=== PATIENT | female | born 1975 | race American Indian/Alaskan Native ===

== ENCOUNTER → 2016-08-08 | Outpatient (CLI) | payer BC | LOC: MW.CHFP 11:56 | PROVIDERS: ATTEND Emergency Medicine | DX: E03.9 Hypothyroidism, unspecified (principal) | CPT/HCPCS: 36415; 84443 ==

== ENCOUNTER 2016-08-16 09:57 | Emergency (ER) | payer BC ==
[2016-08-16] MEDS ORDERED: Ketorolac 60 MG/2 ML SDV IM ONE (10:13)
--- NOTE | 2016-08-16 10:22 | EDM.PDOC ---
ED UPPER BACK/NECK PAIN/INJURY - General Chief Complaint: Neck Problem Stated Complaint: PT CAN'T MOVE HER NECK Time Seen by Provider: 08/16/16 10:00 Source of Information: Reports: Patient History Limitations: Reports: No limitations - History of Present Illness INITIAL COMMENTS - FREE TEXT/NARRATIVE: Presents to the ER reporting that 48 hours ago she was standing on a stool in the garage putting away some items in the rafters. The stool was unsteady and it tipped. She fell to the floor striking her left side but her neck lurched in a whiplash fashion. Her neck was sore that evening and it worsened yesterday. Now today she reports cervical spinal tenderness and pain that radiates up to the occiput, down to below her shoulder blades and laterally to the right shoulder. It is worse when turning her head to the left. She has tried NSAIDs , and massaging, hot packs without relief. Denies tingling or numbness, headache, focal weakness. - Related Data Allergies/ADRs: Allergies Allergy/AdvReac Type Severity Reaction Status Date / Time amoxicillin [Amoxicillin] Allergy Airway Verified 08/16/16 09:59 Tightness Home Meds: Home Meds Levothyroxine [Synthroid] 100 mcg PO DAILY 12/07/14 [History] Multivitamin [Daily Multiple Vitamin] 1 tab PO DAILY 05/16/16 [History] Cyclobenzaprine [Flexeril] 10 mg PO TID PRN #20 tablet 08/16/16 [Rx] Cyclobenzaprine [Flexeril] 10 mg PO TID PRN 7 Days 08/16/16 [Rx] Past Medical History - Past Health History Medical/Surgical History: Denies Medical/Surgical History Other HEENT History: wears reading glasses Cardiovascular History: Reports: None Respiratory History: Reports: None Gastrointestinal History: Reports: None Genitourinary History: Reports: None 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 Musculoskeletal History: Reports: Fracture, RA Other Musculoskeletal History: hx of fx fingers, left hand, bilateral dislocated knees Neurological History: Reports: Concussion, Seizure Other Neuro History: 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, last one at 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21, West Nile infection 2010 Psychiatric History: Reports: None Endocrine/Metabolic History: Reports: Hypothyroidism Hematologic History: Reports: None Immunologic History: Reports: None Oncologic (Cancer) History: Reports: None Dermatologic History: Reports: None - Infectious Disease History Infectious Disease History: Reports: Chicken pox Other Infectious Disease History: mom says pt had roseola - Past Surgical History Head Surgeries/Procedures: Reports: None HEENT Surgical History: Reports: Naso-sinus surgery, Tonsillectomy Cardiovascular Surgical History: Reports: None Respiratory Surgical History: Reports: None GI Surgical History: Reports: Hernia, inguinal Female Surgical History: Reports: None Endocrine Surgical History: Reports: None Neurological Surgical History: Reports: None Musculoskeletal Surgical History: Reports: None Oncologic Surgical History: Reports: None Dermatological Surgical History: Reports: None Social & Family History - Family History Family Medical History: Noncontributory - Tobacco Use Smoking Status *Q: Never Smoker Years of Tobacco use: 9 Used Tobacco, but Quit: Yes Month Tobacco Last Used: 05/2009 Second Hand Smoke Exposure: No - Caffeine Use Caffeine Use: Reports: None - Alcohol Use Days Per Week of Alcohol Use: 1 Number of Drinks Per Day: 7 Total Drinks Per Week: 7 - Recreational Drug Use Recreational Drug Use: No Drug Use in Last 12 Months: No ED ROS GENERAL - Review of Systems Review Of Systems: ROS reveals no pertinent complaints other than HPI. ED EXAM, UPPER BACK/NECK PAIN - Physical Exam Exam: See Below Exam Limited By: No limitations General Appearance: alert, no apparent distress, other (head straight forward alignment) Ears Exam: normal external exam Nose Exam: normal inspection Throat/Mouth Exam: Normal inspection Head Exam: atraumatic, normocephalic Neck Exam: normal inspection, limited range of motion (spinal pain when head rotated left), painful range of motion, spinous processes tender, stiff neck Nexus Criteria: posterior, midline cervical tenderness Cardiovascular/Respiratory: regular rate, rhythm Extremities: normal inspection, normal range of motion, other (right shoulder full ROM without hesitation or m) Neurologic: no motor/sensory deficits, alert, oriented x 3 Psychiatric: normal affect, normal mood Skin Exam: Normal color, Warm/dry Lymphatic: no adenopathy Course - Vital Signs Last Recorded V/S: Last Vital Signs Temp 36.4 C 08/16/16 10:00 Pulse 87 08/16/16 10:00 Resp 18 08/16/16 10:00 BP 148/95 H 08/16/16 10:00 Pulse Ox 96 08/16/16 10:00 - Orders/Labs/Meds Orders: Active Orders 24 hr Category Date Time Status Cervical Spine 2V or 3V [CR] Stat Exams 08/16/16 10:12 Ordered Meds: Medications Discontinued Medications Generic Name Dose Route Start Last Admin Trade Name Lencho PRN Reason Stop Dose Admin Ketorolac Tromethamine 60 mg 08/16/16 10:13 Toradol IM 08/16/16 10:14 ONETIME ONE Departure - Departure Time of Disposition: 11:55 Disposition: Home, Self-Care 01 Condition: good Clinical Impression: Neck pain, acute Instructions: Cervical Sprain, [id number] Referrals: Alberto Yates MD [Physician] - Forms: ED Department Discharge Additional Instructions: 1. Cyclobenzaprine 10 mg every 8 hours as needed for muscle spasm 2. Ultram 50 mg 1-2 mg every 6-8 hours 3. Valium 10 mg one half to one tablet at bedtime as needed--no driving or operating machinery. 4. Warm or cold packs whichever feels back to the neck and upper back as needed for pain 5. PT evaluate and treat if symptoms do not improve 6. Follow up in primary care with Dr. Yates - My Orders Last 24 Hours: My Active Orders 08/16/16 10:12 Cervical Spine 2V or 3V [CR] Stat - Assessment/Plan Last 24 Hours: My Active Orders 08/16/16 10:12 Cervical Spine 2V or 3V [CR] Stat
--- NOTE | 2016-08-16 11:23 | CR ---
EXAMINATION: Cervical spine HISTORY: Pain COMPARISON: None TECHNIQUE: AP and lateral views of the cervical spine FINDINGS: There is a trace reversal of the normal cervical lordosis, likely positional. The vertebra l body heights and disc spaces are grossly maintained. Mild to moderate marginal osteophytes are not ed at C5-C7. Bone mineralization is normal. Early facet arthritic changes are noted. The prevertebra l soft tissues are normal. IMPRESSION: Mild degenerative changes without acute findings.
[2016-08-16 12:13] VITALS: BP 147/89
== END 2016-08-16 12:11 | disposition home or self-care (01) ==
LOC: MW.ED 09:57
DX: M54.2 Cervicalgia (principal); E03.9 Hypothyroidism, unspecified; Z98.890 Other specified postprocedural states; Z79.899 Other long term (current) drug therapy; Z88.1 Allergy status to other antibiotic agents; W17.89XA Other fall from one level to another, initial encounter
CPT/HCPCS: 72040; 96372; 99283; J1885

== ENCOUNTER 2017-01-21 02:02 | Emergency (ER) | payer BC ==
[2017-01-21] MEDS ORDERED: Sodium Chloride 0.9% 10 ML Syringe FLUSH PRN (02:11)
[2017-01-21] MEDS ORDERED: Sodium Chloride 0.9% 2.5 ML Syringe FLUSH PRN (02:11)
[2017-01-21] MEDS ORDERED: LORazepam 2 MG/ML MDV IVPUSH PRN (02:11)
--- NOTE | 2017-01-21 02:17 | EDM.PDOC ---
ED HPI GENERAL MEDICAL PROBLEM - General Chief Complaint: Head Injury Stated Complaint: AMBULANCE Time Seen by Provider: 01/21/17 02:08 Source of Information: Reports: Police, RN - History of Present Illness INITIAL COMMENTS - FREE TEXT/NARRATIVE: She presented by EMS. She was at a bar and fell down on her face. No reported or known LOC. - Related Data Allergies Allergy/AdvReac Type Severity Reaction Status Date / Time amoxicillin [Amoxicillin] Allergy Airway Verified 01/21/17 02:11 Tightness Home Meds: Home Meds Levothyroxine [Synthroid] 100 mcg PO DAILY 12/07/14 [History] Multivitamin [Daily Multiple Vitamin] 1 tab PO DAILY 05/16/16 [History] Cyclobenzaprine [Flexeril] 10 mg PO TID PRN #20 tablet 08/16/16 [Rx] Cyclobenzaprine [Flexeril] 10 mg PO TID PRN 7 Days tablet 08/16/16 [Rx] Past Medical History - Past Health History Medical/Surgical History: Denies Medical/Surgical History Other HEENT History: wears reading glasses Cardiovascular History: Reports: None Respiratory History: Reports: None Gastrointestinal History: Reports: None Genitourinary History: Reports: None 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 Musculoskeletal History: Reports: Fracture, RA Other Musculoskeletal History: hx of fx fingers, left hand, bilateral dislocated knees Neurological History: Reports: Concussion, Seizure Other Neuro History: 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, last one at age 21, West Nile infection 2010 Psychiatric History: Reports: None Endocrine/Metabolic History: Reports: Hypothyroidism Hematologic History: Reports: None Immunologic History: Reports: None Oncologic (Cancer) History: Reports: None Dermatologic History: Reports: None - Infectious Disease History Infectious Disease History: Reports: Chicken Pox Other Infectious Disease History: mom says pt had roseola - Past Surgical History HEENT Surgical History: Reports: Naso-Sinus Surgery, Tonsillectomy GI Surgical History: Reports: Hernia, Inguinal Social & Family History - Family History Family Medical History: Noncontributory - Tobacco Use Smoking Status *Q: Never Smoker Years of Tobacco use: 9 Used Tobacco, but Quit: Yes Month Tobacco Last Used: 05/2009 Second Hand Smoke Exposure: No - Caffeine Use Caffeine Use: Reports: None - Alcohol Use Days Per Week of Alcohol Use: 1 Number of Drinks Per Day: 7 Total Drinks Per Week: 7 - Recreational Drug Use Recreational Drug Use: No Drug Use in Last 12 Months: No ED ROS GENERAL - Review of Systems Review Of Systems: Unable To Obtain ED EXAM, HEAD INJURY - Physical Exam Exam: See Below Text/Narrative:: she is crying and repeats " where is my daughter". She does not answer questions head: neg prieto sign; neg raccoon eyes neck supple and non tender appears to have diffuse swellling of the nasal bridge lungs CTA heart RRR abdomen non tender no facial asymmetry no motor asymmetry Course - Vital Signs Last Recorded V/S: Last Vital Signs Temp 97.4 F 01/21/17 02:04 Pulse 120 H 01/21/17 02:04 Resp 20 01/21/17 02:04 BP 149/111 H 01/21/17 02:04 Pulse Ox 97 01/21/17 02:04 - Orders/Labs/Meds Orders: Active Orders 24 hr Category Date Time Status Cervical Spine wo Cont [CT] Stat Exams 01/21/17 02:12 Taken Head wo Cont [CT] Stat Exams 01/21/17 02:12 Taken Max Facial Sinus wo Cont [CT] Stat Exams 01/21/17 02:12 Taken DRUG SCREEN, URINE [URCHEM] Stat Lab 01/21/17 02:11 Uncollected UA W/MICROSCOPIC [URIN] Stat Lab 01/21/17 02:11 Uncollected LORazepam [Ativan] Med 01/21/17 02:11 Active 1 - 2 mg IVPUSH Q4H PRN Sodium Chloride 0.9% [Normal Saline] 250 ml Med 01/21/17 02:30 Active IV ASDIRECTED Sodium Chloride 0.9% [Saline Flush] Med 01/21/17 02:11 Active 10 ml FLUSH ASDIRECTED PRN Sodium Chloride 0.9% [Saline Flush] Med 01/21/17 02:11 Active 2.5 ml FLUSH ASDIRECTED PRN Saline Lock Insert [OM.PC] Stat Oth 01/21/17 02:10 Ordered Medication Orders Sodium Chloride (Normal Saline) 250 mls @ 250 mls/hr IV ASDIRECTED SLADE Last Admin: 01/21/17 02:30 Dose: 250 mls/hr Lorazepam (Ativan) 1 - 2 mg IVPUSH Q4H PRN PRN Reason: Anxiety Last Admin: 01/21/17 02:25 Dose: 1 mg Sodium Chloride (Saline Flush) 10 ml FLUSH ASDIRECTED PRN PRN Reason: Keep Vein Open Sodium Chloride (Saline Flush) 2.5 ml FLUSH ASDIRECTED PRN PRN Reason: Keep Vein Open Labs: Laboratory Tests 01/21/17 01/21/17 01/21/17 Range/Units 02:20 02:20 02:20 WBC 9.54 (4.0-11.0) K/uL RBC 4.95 (4.30-5.90) M/uL Hgb 15.5 (12.0-16.0) g/dL Hct 44.6 (36.0-46.0) % MCV 90.1 (80.0-98.0) fL MCH 31.3 (27.0-32.0) pg MCHC 34.8 (31.0-37.0) g/dL RDW Std Deviation 44.2 (28.0-62.0) fl RDW Coeff of Desirae 14 (11.0-15.0) % Plt Count 461 H (150-400) K/uL MPV 9.10 (7.40-12.00) fL Neut % (Auto) 61.6 (48.0-80.0) % Lymph % (Auto) 33.3 (16.0-40.0) % Green % (Auto) 3.9 (0.0-15.0) % Eos % (Auto) 0.7 (0.0-7.0) % Baso % (Auto) 0.5 (0.0-1.5) % Neut # (Auto) 5.9 H (1.4-5.7) K/uL Lymph # (Auto) 3.2 H (0.6-2.4) K/uL Green # (Auto) 0.4 (0.0-0.8) K/uL Eos # (Auto) 0.1 (0.0-0.7) K/uL Baso # (Auto) 0.1 (0.0-0.1) K/uL Nucleated RBC % 0.0 /100WBC Nucleated RBCs # 0 K/uL Sodium 142 (136-146) mmol/L Potassium 3.3 L (3.5-5.1) mmol/L Chloride 106 (98-110) mmol/L Carbon Dioxide 20 L (21-31) mmol/L BUN 9 (6.0-23.0) mg/dL Creatinine 0.7 (0.6-1.5) mg/dL Est Cr Clr Drug Dosing 108.85 mL/min Estimated GFR (MDRD) > 60.0 ml/min Glucose 115 H (60-110) mg/dL Calcium 9.9 (8.8-10.8) mg/dL Total Bilirubin 0.3 (0.1-1.5) mg/dL AST 22 (5-40) IU/L ALT 24 (8-54) IU/L Alkaline Phosphatase 71 (40-150) Total Protein 8.4 H (6.0-8.0) g/dL Albumin 4.7 (3.5-5.0) g/dL Globulin 3.7 H (2.0-3.5) g/dL Albumin/Globulin Ratio 1.3 (1.3-2.8) HCG, Qual NEGATIVE (NEG) Ethyl Alcohol 295.0 mg/dL Meds: Medications Generic Name Dose Route Start Last Admin Trade Name Freq PRN Reason Stop Dose Admin Sodium Chloride 250 mls @ 250 mls/hr 01/21/17 02:30 01/21/17 02:30 Normal Saline IV 250 mls/hr ASDIRECTED SLADE Administration Lorazepam 1 - 2 mg 01/21/17 02:11 01/21/17 02:25 Ativan IVPUSH 1 mg Q4H PRN Administration Anxiety Sodium Chloride 10 ml 01/21/17 02:11 Saline Flush FLUSH ASDIRECTED PRN Keep Vein Open Sodium Chloride 2.5 ml 01/21/17 02:11 Saline Flush FLUSH ASDIRECTED PRN Keep Vein Open - Re-Assessments/Exams Free Text/Narrative Re-Assessment/Exam: 01/21/17 04:23 she is alert and cooperative. She wants to go home. she has diffuse swelling and tenderness of her nose. She has no visible nasal malalignment Departure - Departure Time of Disposition: 04:25 Disposition: Home, Self-Care 01 Condition: Fair Clinical Impression: Alcohol intoxication - Discharge Information Forms: ED Department Discharge Additional Instructions: your blood pressure was elevated; a recheck within a month is recommended. - My Orders Last 24 Hours: My Active Orders 01/21/17 02:10 Saline Lock Insert [OM.PC] Stat 01/21/17 02:11 DRUG SCREEN, URINE [URCHEM] Stat UA W/MICROSCOPIC [URIN] Stat LORazepam [Ativan] 1 - 2 mg IVPUSH Q4H PRN Sodium Chloride 0.9% [Saline Flush] 10 ml FLUSH ASDIRECTED PRN Sodium Chloride 0.9% [Saline Flush] 2.5 ml FLUSH ASDIRECTED PRN 01/21/17 02:12 Cervical Spine wo Cont [CT] Stat Head wo Cont [CT] Stat Max Facial Sinus wo Cont [CT] Stat 01/21/17 02:30 Sodium Chloride 0.9% [Normal Saline] 250 ml IV ASDIRECTED - Assessment/Plan Last 24 Hours: My Active Orders 01/21/17 02:10 Saline Lock Insert [OM.PC] Stat 01/21/17 02:11 DRUG SCREEN, URINE [URCHEM] Stat UA W/MICROSCOPIC [URIN] Stat LORazepam [Ativan] 1 - 2 mg IVPUSH Q4H PRN Sodium Chloride 0.9% [Saline Flush] 10 ml FLUSH ASDIRECTED PRN Sodium Chloride 0.9% [Saline Flush] 2.5 ml FLUSH ASDIRECTED PRN 01/21/17 02:12 Cervical Spine wo Cont [CT] Stat Head wo Cont [CT] Stat Max Facial Sinus wo Cont [CT] Stat 01/21/17 02:30 Sodium Chloride 0.9% [Normal Saline] 250 ml IV ASDIRECTED
[2017-01-21] MEDS ORDERED: Sodium Chloride 0.9% 250 ML IV SCH (02:30)
[2017-01-21 02:47] LABS: CHLORIDE,CL 106 mmol/L (98-110); SODIUM,NA 142 mmol/L (136-146)
[2017-01-21] MEDS ORDERED: Potassium Chloride 20 MEQ Tab.ER PO ONE (04:26)
[2017-01-21 04:41] VITALS: BP 135/93
--- NOTE | 2017-01-23 17:14 | CT ---
EXAM DATE: 01/21/17 PATIENT'S AGE: 41 Patient: WALLY JOHNSTON Facility: [place], [place] Site . Site : 1975 Study: CT Head [id number]/23/2017 3:06:16 AM Ordering Physician: Dallas Dacosta Final Report: INDICATION: fall, head injury TECHNIQUE: CT Head without i.v. contrast. COMPARISON: None FINDINGS: CSF spaces: Within normal limits for age. Brain parenchyma: The brain parenchyma is normal in appearance with preservation of the wall-white matter junction. No sign of mass, hemorrhage, or midline shift. Skull base and calvarium: The visualized paranasal sinuses are well aerated. The mastoid air cells are clear. The visualized orbits are grossly unremarkable. No skull fractures are seen. IMPRESSION: 1. No CT evidence of acute infarct, hemorrhage, or mass effect seen. Dictated by: Mani Weber MD @ 01/21/2017 03:08:09 (Electronic Signature) Report Signed by Proxy. JIN
--- NOTE | 2017-01-23 17:15 | CT ---
KMEXAM DATE: 01/21/17 PATIENT'S AGE: 41 Patient: WALLY JOHNSTON Facility: [place], [place] Site . Site : 1975 Study: CT Spine Cervical [id number]/23/2017 3:06:37 AM Ordering Physician: Dallas Dacosta Final Report: INDICATION: fall, neck injury TECHNIQUE: CT cervical spine without i.v. contrast. Coronal and sagittal reformats were obtained. COMPARISON: None FINDINGS: Moderate degradation of image quality is noted due to patient positioning and oblique scan plane. Vertebral alignment: Alignment is normal. Vertebrae: No acute fractures or aggressive bony lesions are identified. Discs and facet joints: The discs are unremarkable in appearance. Scattered facet arthritis noted. Extraspinal findings: Prevertebral soft tissues, visualized airway, and visualized lungs are unremarkable. IMPRESSION: 1. No acute osseous injuries are seen. Dictated by: Mani Weber MD @ 01/21/2017 03:37:44 (Electronic Signature) Report Signed by Proxy. [facility]
--- NOTE | 2017-01-23 17:16 | CT ---
EXAM DATE: 01/21/17 PATIENT'S AGE: 41 Patient: WALLY JOHNSTON Facility: [place], [place] Site . Site : 1975 Study: CT Facial [id number]/23/2017 3:06:56 AM Ordering Physician: Dallas Dacosta Final Report: INDICATION: Facial injury from a fall TECHNIQUE: CT maxillofacial without i.v. contrast. Coronal and sagittal reformats were obtained. COMPARISON: None FINDINGS: Severe degradation of image quality is noted due to patient positioning and oblique scan plane. Facial bones: No acute fractures or aggressive osseous lesions are identified. Specifically the nasal bones, temporomandibular joints, maxilla and mandible appear intact. Orbits and globes: Unremarkable. Sinuses: Mild mucosal thickening seen in the floor of the left maxillary sinus. Soft tissues: Unremarkable. IMPRESSION: 1. No acute osseous injuries are identified. Dictated by Mani Weber MD @ 01/21/2017 3:44:05 AM Dictated by: Mani Weber MD @ 01/21/2017 03:44:16 (Electronic Signature) Report Signed by Proxy. [facility]
== END 2017-01-21 04:46 | disposition home or self-care (01) ==
LOC: MW.ED 02:02
DX: F10.120 Alcohol abuse with intoxication, uncomplicated (principal); E03.9 Hypothyroidism, unspecified; Z88.1 Allergy status to other antibiotic agents; Z79.899 Other long term (current) drug therapy; Z98.890 Other specified postprocedural states; W17.89XA Other fall from one level to another, initial encounter
CPT/HCPCS: 70450; 70486; 72125; 80053; 80305; 81001; 84703; 85025; 96361; 96374; 99284; G0480; J2060; J7050; 99283

== ENCOUNTER 2017-02-02 08:39 | Emergency (ER) | payer BC ==
[2017-02-02] MEDS ORDERED: Sodium Chloride 0.9% 2.5 ML Syringe FLUSH PRN (09:02)
[2017-02-02] MEDS ORDERED: Ketorolac 30 MG/ML SDV IVPUSH ONE (09:02)
[2017-02-02] MEDS ORDERED: Sodium Chloride 0.9% 1,000 ML IV ONE (09:02)
[2017-02-02] MEDS ORDERED: Sodium Chloride 0.9% 10 ML Syringe FLUSH PRN (09:02)
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
[2017-02-02 10:03] LABS: ACETAMINOPHEN < 3.0 ug/mL; CHLORIDE,CL 109 mmol/L (98-110); SODIUM,NA 142 mmol/L (136-146)
[2017-02-02] MEDS ORDERED: Morphine 2 MG/ML Syringe IVPUSH ONE (10:21)
[2017-02-02] MEDS ORDERED: Iopamidol 755 MG/ML 500 ML Multipack Bottle IVPUSH STA (10:56)
--- NOTE | 2017-02-02 11:42 | CT ---
CT of the abdomen and pelvis with contrast. HISTORY: Pain TECHNIQUE: Axial CT images were obtained of the abdomen and pelvis following administration of 100 mL of Isovue-370 in the right antecubital fossa without complication. Coronal and sagittal reconstructi ons obtained. FINDINGS: The lung bases are clear, no pleural effusion. The liver, spleen, adrenal glands, and pancreas appear normal. The gallbladder is normal. There is no bulky retroperitoneal lymphadenopathy or abdominal ascites. The kidneys enhance and function symmetrically without evidence of obstructive uropathy. The large and small bowel are normal in caliber without evidence of obstructive uropathy. The appendi x appears normal. Urinary bladder is normal. No bulky retroperitoneal lymphadenopathy or abdominal as cites. No bulky pelvic lymphadenopathy. There is a nondisplaced lateral left 11th rib fracture. No suspicious osseous abnormalities identifie d. IMPRESSION: 1. No acute findings within the abdomen or pelvis. 2. Nondisplaced left lateral rib fracture
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
[2017-02-02 12:09] VITALS: BP 128/76
== END 2017-02-02 12:05 | disposition home or self-care (01) ==
LOC: MW.ED 08:39
DX: S22.32XA Fracture of one rib, left side, initial encounter for closed fracture (principal); E03.9 Hypothyroidism, unspecified; Z79.899 Other long term (current) drug therapy; Z87.891 Personal history of nicotine dependence; V49.9XXA Car occupant (driver) (passenger) injured in unspecified traffic accident, initial encounter
CPT/HCPCS: 36415; 71101; 74177; 80053; 82150; 83690; 85025; 96361; 96374; 96375; 99284; G0480; J1885; J2270; J7040; Q9967; 99283

== ENCOUNTER 2017-08-18 18:42 | Emergency (ER) | payer BC ==
--- NOTE | 2017-08-18 19:07 | EDM.PDOC ---
ED HPI GENERAL MEDICAL PROBLEM - General Stated Complaint: SEIZURE Time Seen by Provider: 08/18/17 19:07 Source of Information: Reports: Patient, Family - History of Present Illness INITIAL COMMENTS - FREE TEXT/NARRATIVE: HISTORY AND PHYSICAL: []42-year-old female presenting with seizure activity this morning History of Present Illness: []Patient had seizures at the age of 21 has not had any activity since then this morning experienced a seizure/currently is not on any medications for seizure activity. And feels that she still has some aftereffects at this time Patient bit her tongue and came in because of the pain on her tongue Review of Systems: As per history of present illness and below otherwise all systems reviewed and negative. Past medical history: As per history of present illness and as reviewed below otherwise noncontributory. Surgical history: As per history of present illness and as reviewed below otherwise noncontributory. Social history: No reported history of drug or alcohol abuse. Family history: As per history of present illness and as reviewed below otherwise noncontributory. Physical exam: Alert and oriented female answering questions appropriately HEENT: Atraumatic bite to the tongue with edema, normocehpalic, pupils reactive , negative for conjunctival pallor or scleral icterus, mucous membranes moist, throat clear, neck supple, nontender, trachea midline. Lungs: Clear to auscultation, breath sounds equal bilaterally, chest non tender. Heart: S1S2, regular, negative for clicks, rubs, or JVD. Abdomen: Soft, nondistended, nontender. Negative for masses or hepatossplenmegaly. Negative for costovertebral tenderness. Pelvis: Stable nontender. Genitourinary: Deferred. Rectal: Deferred Extremities: Atraumatic, negative for cords or calf pain. Hand grasp is equal bilaterally, patient walked into the room. Neurovascular unremarkable. Neuro: Awake, alert, oriented. Cranial nerves II through XII unremarkable. Cerebellum unremarkable. Motor and sensory unremarkable throughout. Exam nonfocal. Patient has been unable to void EKG normal sinus Head CT scan without abnormality Chest x-ray clear No gross abnormalities on remaining lab work quantitative hCG negative Blood pressure has come down since she was initially evaluated Diagnostics: []CBC CMP quantitative hCG EKG chest x-ray troponin drug screen [facility]A Therapeutics: [] Impression: [Seizure activity] Plan: []Discharged to home Refer to Dr. Noriega For her tongue will give her viscous lidocaine Definitive disposition and diagnosis as appropriate pending reevaluation and review of above. Onset: Today, Sudden Duration: Hour(s):, Resolved Prior to Arrival Quality: Reports: Same as Previous Episode Severity: Moderate tongue Pain Score (Numeric/FACES): 10 - Related Data Allergies Allergy/AdvReac Type Severity Reaction Status Date / Time amoxicillin [Amoxicillin] Allergy Airway Verified 08/18/17 18:52 Tightness Home Meds: Home Meds Levothyroxine [Synthroid] 100 mcg PO DAILY 12/07/14 [History] Multivitamin [Daily Multiple Vitamin] 1 tab PO DAILY 05/16/16 [History] Past Medical History - Past Health History Medical/Surgical History: Denies Medical/Surgical History HEENT History: Reports: None Other HEENT History: wears reading glasses Cardiovascular History: Reports: None Respiratory History: Reports: None Gastrointestinal History: Reports: None Genitourinary History: Reports: None 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 Musculoskeletal History: Reports: Fracture, RA Other Musculoskeletal History: hx of fx fingers, left hand, bilateral dislocated knees Neurological History: Reports: Concussion, Seizure Other Neuro History: 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, last one at age 21, West Nile infection 2010 Psychiatric History: Reports: None Endocrine/Metabolic History: Reports: Hypothyroidism Hematologic History: Reports: None Immunologic History: Reports: None Oncologic (Cancer) History: Reports: None Dermatologic History: Reports: None - Infectious Disease History Infectious Disease History: Reports: Chicken Pox Other Infectious Disease History: mom says pt had roseola - Past Surgical History Head Surgeries/Procedures: Reports: None HEENT Surgical History: Reports: Naso-Sinus Surgery, Tonsillectomy GI Surgical History: Reports: Hernia, Inguinal Social & Family History - Family History Family Medical History: Noncontributory - Tobacco Use Smoking Status *Q: Former Smoker Years of Tobacco use: 10 Packs/Tins Daily: 0.2 Used Tobacco, but Quit: Yes Month/Year Tobacco Last Used: 7 years ago Second Hand Smoke Exposure: No - Caffeine Use Caffeine Use: Reports: Energy Drinks - Alcohol Use Days Per Week of Alcohol Use: 1 Number of Drinks Per Day: 7 Total Drinks Per Week: 7 - Recreational Drug Use Recreational Drug Use: No Drug Use in Last 12 Months: No ED ROS GENERAL - Review of Systems Review Of Systems: ROS reveals no pertinent complaints other than HPI. ED EXAM, NEURO - Physical Exam Exam: See Below (see dictation) EKG INTERPRETATION EKG Date: 08/18/17 Rhythm: NSR Comparison: NA - No Prior EKG Course - Vital Signs Last Recorded V/S: Last Vital Signs Temp 35.8 C 08/18/17 18:50 Pulse 96 08/18/17 19:58 Resp 18 08/18/17 19:58 BP 141/94 H 08/18/17 19:58 Pulse Ox 97 08/18/17 19:58 - Orders/Labs/Meds Orders: Active Orders 24 hr Category Date Time Status EKG Documentation Completion [RC] STAT Care 08/18/17 19:08 Active Chest 2V [CR] Stat Exams 08/18/17 19:08 Taken Head wo Cont [CT] Stat Exams 08/18/17 19:08 Taken DRUG SCREEN, URINE [URCHEM] Stat Lab 08/18/17 19:08 Ordered Sodium Chloride 0.9% [Saline Flush] Med 08/18/17 19:08 Active 10 ml FLUSH ASDIRECTED PRN Sodium Chloride 0.9% [Saline Flush] Med 08/18/17 19:08 Active 2.5 ml FLUSH ASDIRECTED PRN Saline Lock Insert [OM.PC] Stat Oth 08/18/17 19:08 Ordered Medication Orders Sodium Chloride (Saline Flush) 10 ml FLUSH ASDIRECTED PRN PRN Reason: Keep Vein Open Sodium Chloride (Saline Flush) 2.5 ml FLUSH ASDIRECTED PRN PRN Reason: Keep Vein Open Labs: Laboratory Tests 08/18/17 08/18/17 08/18/17 Range/Units 19:18 19:18 19:18 WBC 8.47 (4.0-11.0) K/uL RBC 4.78 (4.30-5.90) M/uL Hgb 14.9 (12.0-16.0) g/dL Hct 42.5 (36.0-46.0) % MCV 88.9 (80.0-98.0) fL MCH 31.2 (27.0-32.0) pg MCHC 35.1 (31.0-37.0) g/dL RDW Std Deviation 42.5 (28.0-62.0) fl RDW Coeff of Desirae 13 (11.0-15.0) % Plt Count 422 H (150-400) K/uL MPV 9.20 (7.40-12.00) fL Neut % (Auto) 59.3 (48.0-80.0) % Lymph % (Auto) 34.6 (16.0-40.0) % [place] % (Auto) 5.0 (0.0-15.0) % Eos % (Auto) 0.5 (0.0-7.0) % Baso % (Auto) 0.6 (0.0-1.5) % Neut # (Auto) 5.0 (1.4-5.7) K/uL Lymph # (Auto) 2.9 H (0.6-2.4) K/uL [place] # (Auto) 0.4 (0.0-0.8) K/uL Eos # (Auto) 0.0 (0.0-0.7) K/uL Baso # (Auto) 0.1 (0.0-0.1) K/uL Nucleated RBC % 0.0 /100WBC Nucleated RBCs # 0 K/uL INR 1.02 Sodium 140 (136-145) mmol/L Potassium 3.5 (3.5-5.1) mmol/L Chloride 106 (98-107) mmol/L Carbon Dioxide 24.6 (21.0-32.0) mmol/L BUN 11 (7.0-18.0) mg/dL Creatinine 0.7 (0.6-1.0) mg/dL Est Cr Clr Drug Dosing 103.89 mL/min Estimated GFR (MDRD) > 60.0 ml/min Glucose 134 H (74-106) mg/dL Calcium 9.8 (8.5-10.1) mg/dL Total Bilirubin 0.3 (0.2-1.0) mg/dL AST 13 L (15-37) IU/L ALT 21 (14-63) IU/L Alkaline Phosphatase 56 (46-116) U/L Troponin I < 0.050 (0.000-0.056) ng/mL Total Protein 8.4 H (6.4-8.2) g/dL Albumin 4.3 (3.4-5.0) g/dL Globulin 4.1 H (2.0-3.5) g/dL Albumin/Globulin Ratio 1.1 L (1.3-2.8) TSH 3rd Generation 1.75 (0.36-3.74) uIU/mL HCG, Qual (NEG) Ethyl Alcohol < 3.0 mg/dL 08/18/17 Range/Units 19:18 WBC (4.0-11.0) K/uL RBC (4.30-5.90) M/uL Hgb (12.0-16.0) g/dL Hct (36.0-46.0) % MCV (80.0-98.0) fL MCH (27.0-32.0) pg MCHC (31.0-37.0) g/dL RDW Std Deviation (28.0-62.0) fl RDW Coeff of Desirae (11.0-15.0) % Plt Count (150-400) K/uL MPV (7.40-12.00) fL Neut % (Auto) (48.0-80.0) % Lymph % (Auto) (16.0-40.0) % [place] % (Auto) (0.0-15.0) % Eos % (Auto) (0.0-7.0) % Baso % (Auto) (0.0-1.5) % Neut # (Auto) (1.4-5.7) K/uL Lymph # (Auto) (0.6-2.4) K/uL [place] # (Auto) (0.0-0.8) K/uL Eos # (Auto) (0.0-0.7) K/uL Baso # (Auto) (0.0-0.1) K/uL Nucleated RBC % /100WBC Nucleated RBCs # K/uL INR Sodium (136-145) mmol/L Potassium (3.5-5.1) mmol/L Chloride (98-107) mmol/L Carbon Dioxide (21.0-32.0) mmol/L BUN (7.0-18.0) mg/dL Creatinine (0.6-1.0) mg/dL Est Cr Clr Drug Dosing mL/min Estimated GFR (MDRD) ml/min Glucose (74-106) mg/dL Calcium (8.5-10.1) mg/dL Total Bilirubin (0.2-1.0) mg/dL AST (15-37) IU/L ALT (14-63) IU/L Alkaline Phosphatase (46-116) U/L Troponin I (0.000-0.056) ng/mL Total Protein (6.4-8.2) g/dL Albumin (3.4-5.0) g/dL Globulin (2.0-3.5) g/dL Albumin/Globulin Ratio (1.3-2.8) TSH 3rd Generation (0.36-3.74) uIU/mL HCG, Qual NEGATIVE (NEG) Ethyl Alcohol mg/dL Meds: Medications Generic Name Dose Route Start Last Admin Trade Name Freq PRN Reason Stop Dose Admin Sodium Chloride 10 ml 08/18/17 19:08 Saline Flush FLUSH ASDIRECTED PRN Keep Vein Open Sodium Chloride 2.5 ml 08/18/17 19:08 Saline Flush FLUSH ASDIRECTED PRN Keep Vein Open Discontinued Medications Generic Name Dose Route Start Last Admin Trade Name Freq PRN Reason Stop Dose Admin Lidocaine HCl 20 ml 08/18/17 19:45 08/18/17 19:55 Xylocaine 2% Viscous PO 08/18/17 19:46 Not Given ONETIME ONE Lidocaine HCl 15 ml 08/18/17 19:52 08/18/17 19:53 Xylocaine 2% Viscous PO 08/18/17 19:53 15 ml ONETIME ONE Administration Lidocaine HCl Confirm 08/18/17 19:50 08/18/17 19:55 Xylocaine 2% Viscous Administered 08/18/17 19:51 Not Given Dose 15 ml .ROUTE .STK-MED ONE Departure - Departure Time of Disposition: 20:28 Disposition: Home, Self-Care 01 Condition: Good Clinical Impression: Seizure - Discharge Information Referrals: PCP,None [Primary Care Provider] - Nancy Noriega MD [Physician] - Additional Instructions: The following information is given to patients seen in the emergency department who are being discharged to home. This information is to outline your options for follow-up care. We provide all patients seen in our emergency department with a follow-up referral. The need for follow-up, as well as the timing and circumstances, are variable depending upon the specifics of your emergency department visit. If you don't have a primary care physician on staff, we will provide you with a referral. We always advise you to contact your personal physician following an emergency department visit to inform them of the circumstance of the visit and for follow-up with them and/or the need for any referrals to a consulting specialist. The emergency department will also refer you to a specialist when appropriate. This referral assures that you have the opportunity for followup care with a specialist. All of these measure are taken in an effort to provide you with optimal care, which includes your followup. Under all circumstances we always encourage you to contact your private physician who remains a resource for coordinating your care. When calling for followup care, please make the office aware that this follow-up is from your recent emergency room visit. If for any reason you are refused follow-up, please contact the [facility] emergency department at and asked to speak to the emergency department charge nurse. Follow-up with Dr. Nancy Noriega as referral has been placed [facility] [address], [address] [place] [address] Viscous lidocaine for your tongue as directed Diclofenac per prescription twice daily 20 no refill Return to the emergency room as discussed and directed - My Orders Last 24 Hours: My Active Orders 08/18/17 19:08 EKG Documentation Completion [RC] STAT Chest 2V [CR] Stat Head wo Cont [CT] Stat DRUG SCREEN, URINE [URCHEM] Stat Sodium Chloride 0.9% [Saline Flush] 10 ml FLUSH ASDIRECTED PRN Sodium Chloride 0.9% [Saline Flush] 2.5 ml FLUSH ASDIRECTED PRN Saline Lock Insert [OM.PC] Stat - Assessment/Plan Last 24 Hours: My Active Orders 08/18/17 19:08 EKG Documentation Completion [RC] STAT Chest 2V [CR] Stat Head wo Cont [CT] Stat DRUG SCREEN, URINE [URCHEM] Stat Sodium Chloride 0.9% [Saline Flush] 10 ml FLUSH ASDIRECTED PRN Sodium Chloride 0.9% [Saline Flush] 2.5 ml FLUSH ASDIRECTED PRN Saline Lock Insert [OM.PC] Stat
[2017-08-18] MEDS ORDERED: Sodium Chloride 0.9% 10 ML Syringe FLUSH PRN (19:08)
[2017-08-18] MEDS ORDERED: Sodium Chloride 0.9% 2.5 ML Syringe FLUSH PRN (19:08)
[2017-08-18] MEDS ORDERED: Lidocaine 2% Viscous Solution 100 ML Bottle PO ONE (19:45)
[2017-08-18] MEDS ORDERED: Lidocaine 2% Viscous Solution 15 ML Cup ONE (19:50)
[2017-08-18] MEDS ORDERED: Lidocaine 2% Viscous Solution 15 ML Cup PO ONE (19:52)
[2017-08-18 19:53] LABS: CHLORIDE,CL 106 mmol/L (98-107); SODIUM,NA 140 mmol/L (136-145)
[2017-08-18 20:38] VITALS: BP 133/91
--- NOTE | 2017-08-21 09:52 | CT ---
EXAM DATE: 08/18/17 PATIENT'S AGE: 42 Patient: WALLY JOHNSTON Facility: [place], [place] Site . Site : 1975 Study: CT Head wo cont [id number]/20/2018 8:10:05 PM Ordering Physician: Doctor Ojeda Final Report: Seizure technique noncontrast head CT scan. FINDINGS: Axial noncontrast images through the brain parenchyma demonstrates no acute intracranial hemorrhage or mass. No midline shift. No abnormal extra-axial air or fluid collections. Visualized paranasal sinuses, mastoid air cells skull and scalp appear unremarkable. Some mucosal thickening of the ethmoid air cells. IMPRESSION: 1. No acute intracranial hemorrhage or mass. Please note that all CT scans at this facility use dose modulation, iterative reconstruction, and/or weight-based dosing when appropriate to reduce radiation dose to as low as reasonably achievable. Dictated by Raquel Brownlee MD @ Aug 18 2017 8:14PM (Electronic Signature) Report Signed by Proxy. MTDD
--- NOTE | 2017-08-21 09:53 | CR ---
EXAM DATE: 08/18/17 PATIENT'S AGE: 42 Patient: WALLY JOHNSTON Facility: [place], [place] Site . Site : 1975 Study: XRay Chest [id number]/20/2018 8:13:46 PM Ordering Physician: Doctor Ojeda Final Report: INDICATION: PT STATES SEIZURE THIS MORNING. HX OF SEIZURE WHEN 21 HAS NOT HAD ONCE SINCE UNTIL TODAY AND CONTINUES TO HAVE POSTICTAL PHASE CHEST, PA AND LATERAL Upright PA and lateral radiographs of the chest were performed. Comparison: No previous studies are currently available for comparison. The lungs appear clear and there are no pleural effusions. Heart size and pulmonary vasculature appear normal. Visualized bones show no significant findings. IMPRESSION: No acute intrathoracic abnormality identified. SHARAD GARCIA MD [employer] Dictated by: Jose Garcia MD @ 08/18/2017 20:21:41 (Electronic Signature) Report Signed by Proxy. [facility]
== END 2017-08-18 20:37 | disposition home or self-care (01) ==
LOC: MW.ED 18:42
DX: R56.9 Unspecified convulsions (principal); E03.9 Hypothyroidism, unspecified; Z88.1 Allergy status to other antibiotic agents; Z79.899 Other long term (current) drug therapy; Z87.891 Personal history of nicotine dependence
CPT/HCPCS: 70450; 71046; 80053; 84443; 84484; 84703; 85025; 85610; 99285; A9270; G0480

== ENCOUNTER 2017-09-23 11:57 | Emergency (ER) | payer BC ==
[2017-09-23] MEDS ORDERED: methylPREDNISolone Sodium Succinate 125 MG/2 ML SDV IVPUSH ONE (12:55)
--- NOTE | 2017-09-23 12:56 | EDM.PDOC ---
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 Past medical history: As per history of present illness and as reviewed below otherwise noncontributory. Surgical history: As per history of present illness and as reviewed below otherwise noncontributory. Social history: No reported history of drug or alcohol abuse. Family history: As per history of present illness and as reviewed below otherwise noncontributory. Physical exam: Alert pleasant woman who is speaking in full sentences without any shortness of breath she does have symptoms range of motion with her fingers but is indeed stiff and herbodine nodules to the fingers. HEENT: Atraumatic, normocehpalic, pupils reactive, negative for conjunctival pallor or scleral icterus, mucous membranes moist, throat clear, neck supple, nontender, trachea midline. Lungs: Clear to auscultation, breath sounds equal bilaterally, chest non tender. Heart: S1S2, regular, negative for clicks, rubs, or JVD. Abdomen: Soft, nondistended, nontender. Negative for masses or hepatossplenmegaly. Negative for costovertebral tenderness. Pelvis: Stable nontender. Genitourinary: Deferred. Rectal: Deferred Extremities: Atraumatic, negative for cords or calf pain. Fingers are tender upon palpation of edema present Neurovascular unremarkable. Neuro: Awake, alert, oriented. Cranial nerves II through XII unremarkable. Cerebellum unremarkable. Motor and sensory unremarkable throughout. Exam nonfocal. Diagnostics: [] Therapeutics: []SoluMedrol IM 125 Impression: []Flareup of her rheumatoid arthritis Plan: []Discharged home medrol dose casey Definitive disposition and diagnosis as appropriate pending reevaluation and review of above. Onset: Sudden Duration: Day(s): (2) Location: Reports: Upper Extremity, Right Right 2-Index finger Pain Score (Numeric/FACES): 8 - Related Data Allergies Allergy/AdvReac Type Severity Reaction Status Date / Time amoxicillin [Amoxicillin] Allergy Airway Verified 09/23/17 12:12 Tightness Home Meds: Home Meds Levothyroxine [Synthroid] 100 mcg PO DAILY 12/07/14 [History] Multivitamin [Daily Multiple Vitamin] 1 tab PO DAILY 05/16/16 [History] methylPREDNISolone [Medrol] 4 mg PO ASDIRECTED #1 dosepk 09/23/17 [Rx] Past Medical History - Past Health History Medical/Surgical History: Denies Medical/Surgical History HEENT History: Reports: None Other HEENT History: wears reading glasses Cardiovascular History: Reports: None Respiratory History: Reports: None Gastrointestinal History: Reports: None Genitourinary History: Reports: None 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, Musculoskeletal History: Reports: Fracture, RA Other Musculoskeletal History: hx of fx fingers, left hand, bilateral dislocated knees Neurological History: Reports: Concussion, Seizure Other Neuro History: 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, last one at age 21, West Nile infection 2010 Psychiatric History: Reports: None Endocrine/Metabolic History: Reports: Hyperthyroidism Hematologic History: Reports: None Immunologic History: Reports: None Oncologic (Cancer) History: Reports: None Dermatologic History: Reports: None - Infectious Disease History Infectious Disease History: Reports: Chicken Pox Other Infectious Disease History: mom says pt had roseola - Past Surgical History Head Surgeries/Procedures: Reports: None HEENT Surgical History: Reports: Adenoidectomy, Naso-Sinus Surgery, Tonsillectomy GI Surgical History: Reports: Hernia, Inguinal Social & Family History - Family History Family Medical History: Noncontributory - Tobacco Use Smoking Status *Q: Former Smoker Used Tobacco, but Quit: Yes Month/Year Tobacco Last Used: 07/2010 - Caffeine Use Caffeine Use: Reports: None - Recreational Drug Use Recreational Drug Use: No Review of Systems - Review of Systems Review Of Systems: ROS reveals no pertinent complaints other than HPI. ED EXAM, GENERAL - Physical Exam Exam: See Below (see dictation) Course - Vital Signs Last Recorded V/S: Last Vital Signs Temp 36.3 C 09/23/17 12:08 Pulse 91 09/23/17 12:08 Resp 16 09/23/17 12:08 BP 130/89 09/23/17 12:08 Pulse Ox 97 09/23/17 12:08 Departure - Departure Time of Disposition: 12:55 Disposition: Home, Self-Care 01 Condition: Good Clinical Impression: Rheumatoid arthritis flare - Discharge Information Prescriptions: methylPREDNISolone [Medrol] 4 mg PO ASDIRECTED #1 dosepk Referrals: PCP,Unknown [Primary Care Provider] -
[2017-09-23] MEDS ORDERED: Ketorolac 60 MG/2 ML SDV IM ONE (13:04)
[2017-09-23 14:32] VITALS: BP 158/92
== END 2017-09-23 13:42 | disposition home or self-care (01) ==
LOC: MW.ED 11:57
DX: M06.9 Rheumatoid arthritis, unspecified (principal); M79.644 Pain in right finger(s); Z88.1 Allergy status to other antibiotic agents; Z79.899 Other long term (current) drug therapy
CPT/HCPCS: 96372; 99283; J2930

== ENCOUNTER 2017-11-12 12:24 | Emergency (ER) | payer BC ==
[2017-11-12 12:50] VITALS: BP 159/100
[2017-11-12] MEDS ORDERED: Ibuprofen 800 MG Tab PO ONE (12:50)
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
== END 2017-11-12 14:08 | disposition home or self-care (01) ==
LOC: MW.ED 12:24
DX: S63.502A Unspecified sprain of left wrist, initial encounter (principal); E05.90 Thyrotoxicosis, unspecified without thyrotoxic crisis or storm; Z88.1 Allergy status to other antibiotic agents; Z79.899 Other long term (current) drug therapy; V86.96XA Unspecified occupant of dirt bike or motor/cross bike injured in nontraffic accident, initial encounter
CPT/HCPCS: 73100; 99283; A9270

== ENCOUNTER 2018-06-15 01:44 | Emergency (ER) | payer BC ==
[2018-06-15 01:48] VITALS: BP 142/95
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
[2018-06-15] MEDS ORDERED: Acetaminophen/HYDROcodone 325-7.5 MG Tab PO STA (02:35)
--- NOTE | 2018-06-15 02:50 | CR ---
INDICATION: Fall, pain, left anterior ribs TECHNIQUE: Chest radiograph, Rib radiographs 4 views left COMPARISON: None FINDINGS: Mediastinum: The mediastinum is normal in appearance. The heart silhouette is normal in size and morphology. Lung: Both lungs are unremarkable in appearance. No sign of pleural effusion seen. No pneumothorax is identified. Ribs and bones: No definite acute rib fractures are identified in the visualized ribs. The remaining osseous structures are unremarkable for age. Soft tissue: Unremarkable. IMPRESSION: 1. No acute cardiopulmonary disease is seen. No acute rib injuries noted. Dictated by: Mani Weber MD @ 06/15/2018 02:48:30 (Electronically Signed)
== END 2018-06-15 03:03 | disposition home or self-care (01) ==
LOC: MW.ED 01:44
DX: S22.32XA Fracture of one rib, left side, initial encounter for closed fracture (principal); E05.90 Thyrotoxicosis, unspecified without thyrotoxic crisis or storm; Z88.1 Allergy status to other antibiotic agents; Z79.899 Other long term (current) drug therapy; W10.9XXA Fall (on) (from) unspecified stairs and steps, initial encounter
CPT/HCPCS: 71101; 99284; A9270; 99283

== ENCOUNTER 2018-10-21 09:29 | Observation (INO) | payer BC ==
--- NOTE | 2018-10-21 10:22 | EDM.PDOC ---
ED HPI GENERAL MEDICAL PROBLEM - General Chief Complaint: General Stated Complaint: UNKNOWN Time Seen by Provider: 10/21/18 09:44 - History of Present Illness INITIAL COMMENTS - FREE TEXT/NARRATIVE: HISTORY AND PHYSICAL: History of present illness: Patient's 51-year-old female with history of polysubstance abuse who presents via paramedics after having had an argument last night with her boyfriend was reported to be drinking and subsequently found with decreased level of consciousness per boyfriend who called paramedics. There is no trauma reported no other complaints on arrival here patient is somnolent does move all extremities is not following commands consistently and is essentially nonverbal. She was reported to have vomiting she is afebrile with stable vital signs here in protecting her airway. Review of systems: As per history of present illness and below otherwise all systems reviewed and negative. Past medical history: As per history of present illness and as reviewed below otherwise noncontributory. Surgical history: As per history of present illness and as reviewed below otherwise noncontributory. Social history: No reported history of drug or alcohol abuse. Family history: As per history of present illness and as reviewed below otherwise noncontributory. Physical exam: HEENT: Atraumatic, normocephalic, pupils reactive, negative for conjunctival pallor or scleral icterus, mucous membranes moist, throat clear, neck supple, nontender, trachea midline. Lungs: Clear to auscultation, breath sounds equal bilaterally, chest nontender. Heart: S1S2, regular, negative for clicks, rubs, or JVD. Abdomen: Soft, nondistended, nontender. Negative for masses or hepatosplenomegaly. Negative for costovertebral tenderness. Pelvis: Stable nontender. Genitourinary: Deferred. Rectal: Deferred. Extremities: Atraumatic, negative for cords or calf pain. Neurovascular unremarkable. Neuro: Patient's somnolent does move all extremities inconsistently follows commands essentially nonverbal has a limited grossly nonfocal exam Diagnostics: CBC CMP urine drug screen and EtOH EKG UA hCG CT brain Therapeutics: IV O2 monitor Impression: #1 altered mental status #2 ethanol abuse Definitive disposition and diagnosis as appropriate pending reevaluation and review of above. Treatments GAS PLANT DISPATCHER: Reports: IV/IO, Other Medication(s), Oxygen, See EMS Report Other Treatments GAS PLANT DISPATCHER: Narcan - Related Data Allergies Allergy/AdvReac Type Severity Reaction Status Date / Time amoxicillin [Amoxicillin] Allergy Airway Verified 10/21/18 16:40 Tightness Home Meds: Home Meds Levothyroxine [Synthroid] 100 mcg PO DAILY 12/07/14 [History] Past Medical History - Past Health History Medical/Surgical History: Denies Medical/Surgical History HEENT History: Reports: None Other HEENT History: wears reading glasses Cardiovascular History: Reports: None Respiratory History: Reports: None Gastrointestinal History: Reports: None Genitourinary History: Reports: None PHYSICAL THERAPY SUPERVISOR History: Reports: None, Musculoskeletal History: Reports: Fracture, RA Other Musculoskeletal History: hx of fx fingers, left hand, bilateral dislocated knees Neurological History: Reports: Concussion, Seizure Other Neuro History: 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, last one at age 21, West Nile infection 2010 Psychiatric History: Reports: Addiction Endocrine/Metabolic History: Reports: Hyperthyroidism Hematologic History: Reports: None Immunologic History: Reports: None Oncologic (Cancer) History: Reports: None Dermatologic History: Reports: None - Infectious Disease History Infectious Disease History: Reports: Chicken Pox Other Infectious Disease History: mom says pt had roseola - Past Surgical History Head Surgeries/Procedures: Reports: None HEENT Surgical History: Reports: Adenoidectomy, Naso-Sinus Surgery, Tonsillectomy GI Surgical History: Reports: Hernia, Inguinal Neurological Surgical History: Reports: None Social & Family History - Family History Family Medical History: Noncontributory - Tobacco Use Smoking Status *Q: Current Status Unknown - Caffeine Use Caffeine Use: Reports: None - Recreational Drug Use Recreational Drug Use Frequency: Patient Refuses To Answer ED ROS GENERAL - Review of Systems Review Of Systems: ROS reveals no pertinent complaints other than HPI. ED EXAM, GENERAL - Physical Exam Exam: See Below (See dictation) Course - Vital Signs Last Recorded V/S: Last Vital Signs Temp 36.3 C 10/21/18 12:28 Pulse 86 10/21/18 13:53 Resp 10 L 10/21/18 13:53 BP 86/48 L 10/21/18 13:53 Pulse Ox 99 10/21/18 13:53 - Orders/Labs/Meds Orders: Active Orders 24 hr Category Date Time Status Patient Status [ADT] Stat ADT 10/21/18 11:32 Active CIWAA Assessment [RC] Q1H Care 10/21/18 11:44 Active Cardiac Monitoring [RC] CONTINUOUS Care 10/21/18 11:45 Active EKG 12 Lead [EKG Documentation Completion] [RC] STAT Care 10/21/18 09:44 Active Oxygen Therapy [RC] PRN Care 10/21/18 11:44 Active Up With Assistance [RC] ASDIRECTED Care 10/21/18 11:44 Active VTE/DVT Education [RC] PER UNIT ROUTINE Care 10/21/18 11:44 Active Vital Signs [RC] Q1HR Care 10/21/18 11:44 Active CULTURE URINE [RM] Stat Lab 10/21/18 09:42 Received Resuscitation Status Routine Resus Stat 10/21/18 11:44 Ordered Labs: Laboratory Tests 10/21/18 10/21/18 10/21/18 Range/Units 09:40 09:42 09:42 WBC (4.0-11.0) K/uL RBC (4.30-5.90) M/uL Hgb (12.0-16.0) g/dL Hct (36.0-46.0) % MCV (80.0-98.0) fL MCH (27.0-32.0) pg MCHC (31.0-37.0) g/dL RDW Std Deviation (28.0-62.0) fl RDW Coeff of Desirae (11.0-15.0) % Plt Count (150-400) K/uL MPV (7.40-12.00) fL Neut % (Auto) (48.0-80.0) % Lymph % (Auto) (16.0-40.0) % [place] % (Auto) (0.0-15.0) % Eos % (Auto) (0.0-7.0) % Baso % (Auto) (0.0-1.5) % Neut # (Auto) (1.4-5.7) K/uL Lymph # (Auto) (0.6-2.4) K/uL [place] # (Auto) (0.0-0.8) K/uL Eos # (Auto) (0.0-0.7) K/uL Baso # (Auto) (0.0-0.1) K/uL Nucleated RBC % /100WBC Nucleated RBCs # K/uL ABG pH (7.35-7.45) ABG pCO2 (35-45) mmHG ABG pO2 (75-100) mmHG ABG HCO3 (22-26) mEq/L ABG Total CO2 ABG Base Excess (-2.0-2.0) Sodium (136-145) mmol/L Potassium (3.5-5.1) mmol/L Chloride (98-107) mmol/L Carbon Dioxide (21.0-32.0) mmol/L BUN (7.0-18.0) mg/dL Creatinine (0.6-1.0) mg/dL Est Cr Clr Drug Dosing Estimated GFR (MDRD) ml/min Glucose (74-106) mg/dL Calcium (8.5-10.1) mg/dL Total Bilirubin (0.2-1.0) mg/dL AST (15-37) IU/L ALT (14-63) IU/L Alkaline Phosphatase (46-116) U/L Troponin I (0.000-0.056) ng/mL Total Protein (6.4-8.2) g/dL Albumin (3.4-5.0) g/dL Globulin (2.6-4.0) g/dL Albumin/Globulin Ratio (0.9-1.6) Urine Color YELLOW Urine Appearance SLT CLOUDY Urine pH 6.0 (5.0-8.0) Ur Specific Weiner 1.025 (1.001-1.035) Urine Protein TRACE H (NEGATIVE) mg/dL Urine Glucose (UA) NEGATIVE (NEGATIVE) mg/dL Urine Ketones 15 H (NEGATIVE) mg/dL Urine Occult Blood LARGE H (NEGATIVE) Urine Nitrite POSITIVE H (NEGATIVE) Urine Bilirubin NEGATIVE (NEGATIVE) Urine Urobilinogen 0.2 (<2.0) EU/dL Ur Leukocyte Esterase TRACE H (NEGATIVE) Urine RBC 10-20 (0-2/HPF) Urine WBC 0-2 (0-5/HPF) Ur Epithelial Cells RARE (NONE-FEW) Urine Bacteria 3+ H (NEGATIVE) Urine Mucus FEW (NONE-MOD) Urine HCG, Qual NEGATIVE (NEGATIVE) Salicylates (0-20) mg/dL Urine Opiates Screen NEGATIVE (NEGATIVE) Ur Oxycodone Screen NEGATIVE (NEGATIVE) Urine Methadone Screen NEGATIVE (NEGATIVE) Acetaminophen ug/mL Ur Barbiturates Screen NEGATIVE (NEGATIVE) Ur Phencyclidine Scrn NEGATIVE (NEGATIVE) Ur Amphetamine Screen NEGATIVE (NEGATIVE) U Methamphetamines Scrn NEGATIVE (NEGATIVE) U Benzodiazepines Scrn NEGATIVE (NEGATIVE) U Cocaine Metab Screen NEGATIVE (NEGATIVE) U Marijuana (THC) Screen NEGATIVE (NEGATIVE) Ethyl Alcohol mg/dL 10/21/18 10/21/18 10/21/18 Range/Units 10:04 10:04 10:04 WBC 8.30 (4.0-11.0) K/uL RBC 4.87 (4.30-5.90) M/uL Hgb 15.3 (12.0-16.0) g/dL Hct 45.1 (36.0-46.0) % MCV 92.6 (80.0-98.0) fL MCH 31.4 (27.0-32.0) pg MCHC 33.9 (31.0-37.0) g/dL RDW Std Deviation 44.4 (28.0-62.0) fl RDW Coeff of Desirae 13 (11.0-15.0) % Plt Count 441 H (150-400) K/uL MPV 9.50 (7.40-12.00) fL Neut % (Auto) 84.7 H (48.0-80.0) % Lymph % (Auto) 13.4 L (16.0-40.0) % [place] % (Auto) 1.6 (0.0-15.0) % Eos % (Auto) 0.1 (0.0-7.0) % Baso % (Auto) 0.2 (0.0-1.5) % Neut # (Auto) 7.0 H (1.4-5.7) K/uL Lymph # (Auto) 1.1 (0.6-2.4) K/uL [place] # (Auto) 0.1 (0.0-0.8) K/uL Eos # (Auto) 0.0 (0.0-0.7) K/uL Baso # (Auto) 0.0 (0.0-0.1) K/uL Nucleated RBC % 0.0 /100WBC Nucleated RBCs # 0 K/uL ABG pH (7.35-7.45) ABG pCO2 (35-45) mmHG ABG pO2 (75-100) mmHG ABG HCO3 (22-26) mEq/L ABG Total CO2 ABG Base Excess (-2.0-2.0) Sodium 143 (136-145) mmol/L Potassium 3.6 (3.5-5.1) mmol/L Chloride 104 (98-107) mmol/L Carbon Dioxide 21.4 (21.0-32.0) mmol/L BUN 7 (7.0-18.0) mg/dL Creatinine 0.5 L (0.6-1.0) mg/dL Est Cr Clr Drug Dosing TNP Estimated GFR (MDRD) > 60.0 ml/min Glucose 131 H (74-106) mg/dL Calcium 8.2 L (8.5-10.1) mg/dL Total Bilirubin 0.2 (0.2-1.0) mg/dL AST 10 L (15-37) IU/L ALT 16 (14-63) IU/L Alkaline Phosphatase 47 (46-116) U/L Troponin I < 0.050 (0.000-0.056) ng/mL Total Protein 7.9 (6.4-8.2) g/dL Albumin 4.3 (3.4-5.0) g/dL Globulin 3.6 (2.6-4.0) g/dL Albumin/Globulin Ratio 1.2 (0.9-1.6) Urine Color Urine Appearance Urine pH (5.0-8.0) Ur Specific Weiner (1.001-1.035) Urine Protein (NEGATIVE) mg/dL Urine Glucose (UA) (NEGATIVE) mg/dL Urine Ketones (NEGATIVE) mg/dL Urine Occult Blood (NEGATIVE) Urine Nitrite (NEGATIVE) Urine Bilirubin (NEGATIVE) Urine Urobilinogen (<2.0) EU/dL Ur Leukocyte Esterase (NEGATIVE) Urine RBC (0-2/HPF) Urine WBC (0-5/HPF) Ur Epithelial Cells (NONE-FEW) Urine Bacteria (NEGATIVE) Urine Mucus (NONE-MOD) Urine HCG, Qual (NEGATIVE) Salicylates 1.5 (0-20) mg/dL Urine Opiates Screen (NEGATIVE) Ur Oxycodone Screen (NEGATIVE) Urine Methadone Screen (NEGATIVE) Acetaminophen ug/mL Ur Barbiturates Screen (NEGATIVE) Ur Phencyclidine Scrn (NEGATIVE) Ur Amphetamine Screen (NEGATIVE) U Methamphetamines Scrn (NEGATIVE) U Benzodiazepines Scrn (NEGATIVE) U Cocaine Metab Screen (NEGATIVE) U Marijuana (THC) Screen (NEGATIVE) Ethyl Alcohol 133 mg/dL 10/21/18 10/21/18 Range/Units 10:04 11:10 WBC (4.0-11.0) K/uL RBC (4.30-5.90) M/uL Hgb (12.0-16.0) g/dL Hct (36.0-46.0) % MCV (80.0-98.0) fL MCH (27.0-32.0) pg MCHC (31.0-37.0) g/dL RDW Std Deviation (28.0-62.0) fl RDW Coeff of Desirae (11.0-15.0) % Plt Count (150-400) K/uL MPV (7.40-12.00) fL Neut % (Auto) (48.0-80.0) % Lymph % (Auto) (16.0-40.0) % [place] % (Auto) (0.0-15.0) % Eos % (Auto) (0.0-7.0) % Baso % (Auto) (0.0-1.5) % Neut # (Auto) (1.4-5.7) K/uL Lymph # (Auto) (0.6-2.4) K/uL [place] # (Auto) (0.0-0.8) K/uL Eos # (Auto) (0.0-0.7) K/uL Baso # (Auto) (0.0-0.1) K/uL Nucleated RBC % /100WBC Nucleated RBCs # K/uL ABG pH 7.407 (7.35-7.45) ABG pCO2 35 (35-45) mmHG ABG pO2 81 (75-100) mmHG ABG HCO3 22 (22-26) mEq/L ABG Total CO2 19.0 ABG Base Excess -2.3 L (-2.0-2.0) Sodium (136-145) mmol/L Potassium (3.5-5.1) mmol/L Chloride (98-107) mmol/L Carbon Dioxide (21.0-32.0) mmol/L BUN (7.0-18.0) mg/dL Creatinine (0.6-1.0) mg/dL Est Cr Clr Drug Dosing Estimated GFR (MDRD) ml/min Glucose (74-106) mg/dL Calcium (8.5-10.1) mg/dL Total Bilirubin (0.2-1.0) mg/dL AST (15-37) IU/L ALT (14-63) IU/L Alkaline Phosphatase (46-116) U/L Troponin I (0.000-0.056) ng/mL Total Protein (6.4-8.2) g/dL Albumin (3.4-5.0) g/dL Globulin (2.6-4.0) g/dL Albumin/Globulin Ratio (0.9-1.6) Urine Color Urine Appearance Urine pH (5.0-8.0) Ur Specific Weiner (1.001-1.035) Urine Protein (NEGATIVE) mg/dL Urine Glucose (UA) (NEGATIVE) mg/dL Urine Ketones (NEGATIVE) mg/dL Urine Occult Blood (NEGATIVE) Urine Nitrite (NEGATIVE) Urine Bilirubin (NEGATIVE) Urine Urobilinogen (<2.0) EU/dL Ur Leukocyte Esterase (NEGATIVE) Urine RBC (0-2/HPF) Urine WBC (0-5/HPF) Ur Epithelial Cells (NONE-FEW) Urine Bacteria (NEGATIVE) Urine Mucus (NONE-MOD) Urine HCG, Qual (NEGATIVE) Salicylates (0-20) mg/dL Urine Opiates Screen (NEGATIVE) Ur Oxycodone Screen (NEGATIVE) Urine Methadone Screen (NEGATIVE) Acetaminophen <2.0 ug/mL Ur Barbiturates Screen (NEGATIVE) Ur Phencyclidine Scrn (NEGATIVE) Ur Amphetamine Screen (NEGATIVE) U Methamphetamines Scrn (NEGATIVE) U Benzodiazepines Scrn (NEGATIVE) U Cocaine Metab Screen (NEGATIVE) U Marijuana (THC) Screen (NEGATIVE) Ethyl Alcohol mg/dL Meds: Medications Discontinued Medications Generic Name Dose Route Start Last Admin Trade Name Freq PRN Reason Stop Dose Admin Enoxaparin Sodium 40 mg 10/21/18 11:45 10/21/18 15:11 Lovenox SUBCUT Not Given Q24H SLADE Fentanyl Confirm 10/21/18 12:48 10/21/18 15:11 Sublimaze Administered 10/21/18 12:49 Not Given Dose 100 mcg .ROUTE .STK-MED ONE Fentanyl 50 mcg 10/21/18 12:59 10/21/18 14:01 Sublimaze IVPUSH 50 mcg Q30M PRN Administration Pain Ceftriaxone Sodium/Dextrose 1 50 mls @ 100 mls/hr 10/21/18 11:15 10/21/18 11: 19 gm/ Premix IV 10/21/18 11:44 100 mls/hr ONETIME ONE Administration Thiamine HCl 100 mg/ Folic 1,001.2 mls @ 125 mls/hr 10/21/18 11:45 Acid 1 mg/ Sodium Chloride IV ASDIRECTED SLADE Propofol 100 mls @ 1.633 mls/hr 10/21/18 13:00 10/21/18 13:25 Diprivan 100 Ml IV 15.3 mcg/kg/min TITRATE SLADE 4.997 mls/hr Titration Protocol 5 MCG/KG/MIN Pantoprazole Sodium 40 mg/ 100 mls @ 10 mls/hr 10/21/18 13:00 10/21/18 15:10 Sodium Chloride IVPUSH Not Given DAILY SLADE Sodium Chloride 1,000 mls @ 125 mls/hr 10/21/18 13:15 Normal Saline IV ASDIRECTED SLADE Phenytoin Sodium 1,000 mg/ 270 mls @ 250 mls/hr 10/21/18 13:30 10/21/18 13:32 Sodium Chloride IV 10/21/18 14:34 250 mls/hr ONETIME ONE Administration Thiamine HCl 100 mg/ Folic 1,011.2 mls @ 126.247 mls/hr 10/21/18 13:15 13:16 Acid 1 mg/ Multivitamins/ IV 126.247 mls/hr Minerals 10 ml/ Sodium ASDIRECTED SLADE Administration Chloride Pantoprazole Sodium 40 mg/ 100 mls @ 10 mls/hr 10/21/18 14:09 Sodium Chloride IV DAILY SLADE Lorazepam 1 mg 10/21/18 11:44 10/21/18 12:41 Ativan IVPUSH 1 mg Q4H PRN Administration Agitation Midazolam HCl Confirm 10/21/18 12:48 10/21/18 15:09 Versed 1 Mg/Ml Administered 10/21/18 12:49 Not Given Dose 2 mg .ROUTE .STK-MED ONE Ondansetron HCl 4 mg 10/21/18 11:44 Zofran IVPUSH Q6H PRN Nausea/Vomiting Departure - Departure Time of Disposition: 21:53 Disposition: Refer to Observation Condition: Serious Clinical Impression: History of seizure disorder Altered mental status Qualifiers: Altered mental status type: somnolence Qualified Code(s): R40.0 - Somnolence Overdose Qualifiers: Encounter type: initial encounter - Discharge Information - My Orders Last 24 Hours: My Active Orders 10/21/18 09:42 CULTURE URINE [RM] Stat 10/21/18 09:44 EKG 12 Lead [EKG Documentation Completion] [RC] STAT 10/21/18 11:32 Patient Status [ADT] Stat - Assessment/Plan Last 24 Hours: My Active Orders 10/21/18 09:42 CULTURE URINE [RM] Stat 10/21/18 09:44 EKG 12 Lead [EKG Documentation Completion] [RC] STAT 10/21/18 11:32 Patient Status [ADT] Stat
[2018-10-21 10:49] LABS: CHLORIDE,CL 104 mmol/L (98-107); SODIUM,NA 143 mmol/L (136-145)
[2018-10-21] MEDS ORDERED: cefTRIAXone 1 GM in Sodium Chloride 0.9% 50 ML IV ONE (10:59)
--- NOTE | 2018-10-21 11:08 | CR ---
INDICATION: Pt found unresponsive COMPARISON: July, Single AP view Findings: The lungs are clear. Pulmonary vascularity, mediastinum and cardiac silhouette are within normal limits. No effusions and no pneumothorax. Osseous structures appear unremarkable. Impression: No evidence of acute cardiopulmonary disease. Dictated by: Yifan Harris MD @ 10/21/2018 11:05:52 (Electronically Signed)
--- NOTE | 2018-10-21 11:10 | CT ---
INDICATION: Unresponsive. TECHNIQUE: CT Head without contrast. COMPARISON: [address] head. FINDINGS: CSF spaces: Within normal limits for age. Brain parenchyma: The wall-white differentiation is normal. No sign of mass, hemorrhage, or midline shift. Skull base and calvarium: The visualized paranasal sinuses and mastoid air cells are clear. The visualized orbits are grossly unremarkable. No skull fractures. . IMPRESSION: Unremarkable noncontrast head CT. Please note that all CT scans at this facility use dose modulation, iterative reconstruction, and/or weight-based dosing when appropriate to reduce radiation dose to as low as reasonably achievable. Dictated by Yifan Harris MD @ Oct 21 2018 11:07AM Signed by Dr. Yifan Harris @ Oct 21 2018 11:08AM
[2018-10-21] MEDS ORDERED: cefTRIAXone 1 GM in Premix Bag 1 BAG IV ONE (11:15)
[2018-10-21] MEDS ORDERED: Ondansetron 4 MG/2 ML SDV IVPUSH PRN (11:44)
[2018-10-21] MEDS ORDERED: LORazepam 2 MG/ML SDV IVPUSH PRN (11:44)
[2018-10-21] MEDS ORDERED: Enoxaparin 40 MG/0.4 ML Syringe SUBCUT SCH (11:45)
--- NOTE | 2018-10-21 11:48 | PCM.HP ---
H&P History of Present Illness - General Date of Service: 10/21/18 Admit Problem/Dx: Admission Diagnosis/Problem Admission Diagnosis/Problem Altered mental status, alcohol abuse, polysubstance abuse Source of Information: Family, Old Records History Limitations: Reports: Altered Mental Status, Intoxication - History of Present Illness Initial Comments - Free Text/Narative: The patient is 51-year-old lady who has a history of polysubstance abuse was presented to the emergency department by her family and emergency resources services due to inability stay awake. The patient's family reports that she had been drinking heavily yesterday and had an argument with her boyfriend. The patient had markedly decreased level of consciousness and the paramedics recessively called. The mother reports that there may have been consumption of Unisom as well as the alcohol use. The patient is obtunded, noncommunicative and family is available and therefore history is been taken from her previous medical records as well as charting. She is not able to participate in any meaningful way with her history and physical. Onset of Symptoms: Reports: Unknown/Unsure Improves with: Reports: None Worsens with: Reports: None - Related Data Allergies/Adverse Reactions: Allergies Allergy/AdvReac Type Severity Reaction Status Date / Time amoxicillin [Amoxicillin] Allergy Airway Verified 10/21/18 09:46 Tightness Home Medications: Home Meds Levothyroxine [Synthroid] 100 mcg PO DAILY 12/07/14 [History] Past Medical History - Past Health History Medical/Surgical History: Denies Medical/Surgical History HEENT History: Reports: None Other HEENT History: wears reading glasses Cardiovascular History: Reports: None Respiratory History: Reports: None Gastrointestinal History: Reports: None Genitourinary History: Reports: None 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: 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: None, Musculoskeletal History: Reports: Fracture, RA Other Musculoskeletal History: hx of fx fingers, left hand, bilateral dislocated knees Neurological History: Reports: Concussion, Seizure Other Neuro History: 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, last one at age 21, West Nile infection 2010 Psychiatric History: Reports: Addiction, Emotional Problems Endocrine/Metabolic History: Reports: Hyperthyroidism Hematologic History: Reports: None Immunologic History: Reports: None Oncologic (Cancer) History: Reports: None Dermatologic History: Reports: None - Infectious Disease History Infectious Disease History: Reports: Chicken Pox Other Infectious Disease History: mom says pt had roseola - Past Surgical History Head Surgeries/Procedures: Reports: None HEENT Surgical History: Reports: Adenoidectomy, Naso-Sinus Surgery, Tonsillectomy GI Surgical History: Reports: Hernia, Inguinal Neurological Surgical History: Reports: None Social & Family History - Family History Family Medical History: Noncontributory - Tobacco Use Smoking Status *Q: Current Status Unknown - Caffeine Use Caffeine Use: Reports: None - Recreational Drug Use Recreational Drug Use Frequency: Patient Refuses To Answer H&P Review of Systems - Review of Systems: Review Of Systems: Unable To Obtain Exam - Exam Exam: See Below - Vital Signs Vital Signs: Last Vital Signs Temp 36.4 C 10/21/18 09:44 Pulse 97 10/21/18 09:44 Resp 16 10/21/18 09:44 BP 134/95 H 10/21/18 09:44 Pulse Ox 94 L 10/21/18 09:44 Weight: 54.431 kg - Exam Quality Assessment: Supplemental Oxygen General: Obtunded. No: Alert, Oriented HEENT: Conjunctiva Clear. No: Mucosa Moist & Lindsey (Dry) Neck: Supple, Trachea Midline Lungs: Clear to Auscultation, Normal Respiratory Effort Cardiovascular: Regular Rate, Regular Rhythm GI/Abdominal Exam: Normal Bowel Sounds, Soft (No tenderness to examination, no reaction), No Distention Back Exam: Normal Inspection, Other (In position) Extremities: Normal Inspection, No Pedal Edema Skin: Warm, Dry, Intact Neurological: No: Cranial Nerves Intact (Not able to assess) Neuro Extensive - Mental Status: No: Alert, Oriented x3 Psychiatric: No: Alert - Patient Data Lab Results Last 24 hrs: Laboratory Results - last 24 hr 10/21/18 10/21/18 10/21/18 Range/Units 09:40 09:42 09:42 WBC (4.0-11.0) K/uL RBC (4.30-5.90) M/uL Hgb (12.0-16.0) g/dL Hct (36.0-46.0) % MCV (80.0-98.0) fL MCH (27.0-32.0) pg MCHC (31.0-37.0) g/dL RDW Std Deviation (28.0-62.0) fl RDW Coeff of Desirae (11.0-15.0) % Plt Count (150-400) K/uL MPV (7.40-12.00) fL Neut % (Auto) (48.0-80.0) % Lymph % (Auto) (16.0-40.0) % Yancey % (Auto) (0.0-15.0) % Eos % (Auto) (0.0-7.0) % Baso % (Auto) (0.0-1.5) % Neut # (Auto) (1.4-5.7) K/uL Lymph # (Auto) (0.6-2.4) K/uL Yancey # (Auto) (0.0-0.8) K/uL Eos # (Auto) (0.0-0.7) K/uL Baso # (Auto) (0.0-0.1) K/uL Nucleated RBC % /100WBC Nucleated RBCs # K/uL ABG pH (7.35-7.45) ABG pCO2 (35-45) mmHG ABG pO2 (75-100) mmHG ABG HCO3 (22-26) mEq/L ABG Total CO2 ABG Base Excess (-2.0-2.0) Sodium (136-145) mmol/L Potassium (3.5-5.1) mmol/L Chloride (98-107) mmol/L Carbon Dioxide (21.0-32.0) mmol/L BUN (7.0-18.0) mg/dL Creatinine (0.6-1.0) mg/dL Est Cr Clr Drug Dosing Estimated GFR (MDRD) ml/min Glucose (74-106) mg/dL Calcium (8.5-10.1) mg/dL Total Bilirubin (0.2-1.0) mg/dL AST (15-37) IU/L ALT (14-63) IU/L Alkaline Phosphatase (46-116) U/L Troponin I (0.000-0.056) ng/mL Total Protein (6.4-8.2) g/dL Albumin (3.4-5.0) g/dL Globulin (2.6-4.0) g/dL Albumin/Globulin Ratio (0.9-1.6) Urine Color YELLOW Urine Appearance SLT CLOUDY Urine pH 6.0 (5.0-8.0) Ur Specific Robert 1.025 (1.001-1.035) Urine Protein TRACE H (NEGATIVE) mg/dL Urine Glucose (UA) NEGATIVE (NEGATIVE) mg/dL Urine Ketones 15 H (NEGATIVE) mg/dL Urine Occult Blood LARGE H (NEGATIVE) Urine Nitrite POSITIVE H (NEGATIVE) Urine Bilirubin NEGATIVE (NEGATIVE) Urine Urobilinogen 0.2 (<2.0) EU/dL Ur Leukocyte Esterase TRACE H (NEGATIVE) Urine RBC 10-20 (0-2/HPF) Urine WBC 0-2 (0-5/HPF) Ur Epithelial Cells RARE (NONE-FEW) Urine Bacteria 3+ H (NEGATIVE) Urine Mucus FEW (NONE-MOD) Urine HCG, Qual NEGATIVE (NEGATIVE) Salicylates (0-20) mg/dL Urine Opiates Screen NEGATIVE (NEGATIVE) Ur Oxycodone Screen NEGATIVE (NEGATIVE) Urine Methadone Screen NEGATIVE (NEGATIVE) Acetaminophen ug/mL Ur Barbiturates Screen NEGATIVE (NEGATIVE) Ur Phencyclidine Scrn NEGATIVE (NEGATIVE) Ur Amphetamine Screen NEGATIVE (NEGATIVE) U Methamphetamines Scrn NEGATIVE (NEGATIVE) U Benzodiazepines Scrn NEGATIVE (NEGATIVE) U Cocaine Metab Screen NEGATIVE (NEGATIVE) U Marijuana (THC) Screen NEGATIVE (NEGATIVE) Ethyl Alcohol mg/dL 10/21/18 10/21/18 10/21/18 Range/Units 10:04 10:04 10:04 WBC 8.30 (4.0-11.0) K/uL RBC 4.87 (4.30-5.90) M/uL Hgb 15.3 (12.0-16.0) g/dL Hct 45.1 (36.0-46.0) % MCV 92.6 (80.0-98.0) fL MCH 31.4 (27.0-32.0) pg MCHC 33.9 (31.0-37.0) g/dL RDW Std Deviation 44.4 (28.0-62.0) fl RDW Coeff of Desirae 13 (11.0-15.0) % Plt Count 441 H (150-400) K/uL MPV 9.50 (7.40-12.00) fL Neut % (Auto) 84.7 H (48.0-80.0) % Lymph % (Auto) 13.4 L (16.0-40.0) % Yancey % (Auto) 1.6 (0.0-15.0) % Eos % (Auto) 0.1 (0.0-7.0) % Baso % (Auto) 0.2 (0.0-1.5) % Neut # (Auto) 7.0 H (1.4-5.7) K/uL Lymph # (Auto) 1.1 (0.6-2.4) K/uL Yancey # (Auto) 0.1 (0.0-0.8) K/uL Eos # (Auto) 0.0 (0.0-0.7) K/uL Baso # (Auto) 0.0 (0.0-0.1) K/uL Nucleated RBC % 0.0 /100WBC Nucleated RBCs # 0 K/uL ABG pH (7.35-7.45) ABG pCO2 (35-45) mmHG ABG pO2 (75-100) mmHG ABG HCO3 (22-26) mEq/L ABG Total CO2 ABG Base Excess (-2.0-2.0) Sodium 143 (136-145) mmol/L Potassium 3.6 (3.5-5.1) mmol/L Chloride 104 (98-107) mmol/L Carbon Dioxide 21.4 (21.0-32.0) mmol/L BUN 7 (7.0-18.0) mg/dL Creatinine 0.5 L (0.6-1.0) mg/dL Est Cr Clr Drug Dosing TNP Estimated GFR (MDRD) > 60.0 ml/min Glucose 131 H (74-106) mg/dL Calcium 8.2 L (8.5-10.1) mg/dL Total Bilirubin 0.2 (0.2-1.0) mg/dL AST 10 L (15-37) IU/L ALT 16 (14-63) IU/L Alkaline Phosphatase 47 (46-116) U/L Troponin I < 0.050 (0.000-0.056) ng/mL Total Protein 7.9 (6.4-8.2) g/dL Albumin 4.3 (3.4-5.0) g/dL Globulin 3.6 (2.6-4.0) g/dL Albumin/Globulin Ratio 1.2 (0.9-1.6) Urine Color Urine Appearance Urine pH (5.0-8.0) Ur Specific Robert (1.001-1.035) Urine Protein (NEGATIVE) mg/dL Urine Glucose (UA) (NEGATIVE) mg/dL Urine Ketones (NEGATIVE) mg/dL Urine Occult Blood (NEGATIVE) Urine Nitrite (NEGATIVE) Urine Bilirubin (NEGATIVE) Urine Urobilinogen (<2.0) EU/dL Ur Leukocyte Esterase (NEGATIVE) Urine RBC (0-2/HPF) Urine WBC (0-5/HPF) Ur Epithelial Cells (NONE-FEW) Urine Bacteria (NEGATIVE) Urine Mucus (NONE-MOD) Urine HCG, Qual (NEGATIVE) Salicylates 1.5 (0-20) mg/dL Urine Opiates Screen (NEGATIVE) Ur Oxycodone Screen (NEGATIVE) Urine Methadone Screen (NEGATIVE) Acetaminophen ug/mL Ur Barbiturates Screen (NEGATIVE) Ur Phencyclidine Scrn (NEGATIVE) Ur Amphetamine Screen (NEGATIVE) U Methamphetamines Scrn (NEGATIVE) U Benzodiazepines Scrn (NEGATIVE) U Cocaine Metab Screen (NEGATIVE) U Marijuana (THC) Screen (NEGATIVE) Ethyl Alcohol 133 mg/dL 10/21/18 10/21/18 Range/Units 10:04 11:10 WBC (4.0-11.0) K/uL RBC (4.30-5.90) M/uL Hgb (12.0-16.0) g/dL Hct (36.0-46.0) % MCV (80.0-98.0) fL MCH (27.0-32.0) pg MCHC (31.0-37.0) g/dL RDW Std Deviation (28.0-62.0) fl RDW Coeff of Desirae (11.0-15.0) % Plt Count (150-400) K/uL MPV (7.40-12.00) fL Neut % (Auto) (48.0-80.0) % Lymph % (Auto) (16.0-40.0) % Yancey % (Auto) (0.0-15.0) % Eos % (Auto) (0.0-7.0) % Baso % (Auto) (0.0-1.5) % Neut # (Auto) (1.4-5.7) K/uL Lymph # (Auto) (0.6-2.4) K/uL Yancey # (Auto) (0.0-0.8) K/uL Eos # (Auto) (0.0-0.7) K/uL Baso # (Auto) (0.0-0.1) K/uL Nucleated RBC % /100WBC Nucleated RBCs # K/uL ABG pH 7.407 (7.35-7.45) ABG pCO2 35 (35-45) mmHG ABG pO2 81 (75-100) mmHG ABG HCO3 22 (22-26) mEq/L ABG Total CO2 19.0 ABG Base Excess -2.3 L (-2.0-2.0) Sodium (136-145) mmol/L Potassium (3.5-5.1) mmol/L Chloride (98-107) mmol/L Carbon Dioxide (21.0-32.0) mmol/L BUN (7.0-18.0) mg/dL Creatinine (0.6-1.0) mg/dL Est Cr Clr Drug Dosing Estimated GFR (MDRD) ml/min Glucose (74-106) mg/dL Calcium (8.5-10.1) mg/dL Total Bilirubin (0.2-1.0) mg/dL AST (15-37) IU/L ALT (14-63) IU/L Alkaline Phosphatase (46-116) U/L Troponin I (0.000-0.056) ng/mL Total Protein (6.4-8.2) g/dL Albumin (3.4-5.0) g/dL Globulin (2.6-4.0) g/dL Albumin/Globulin Ratio (0.9-1.6) Urine Color Urine Appearance Urine pH (5.0-8.0) Ur Specific Robert (1.001-1.035) Urine Protein (NEGATIVE) mg/dL Urine Glucose (UA) (NEGATIVE) mg/dL Urine Ketones (NEGATIVE) mg/dL Urine Occult Blood (NEGATIVE) Urine Nitrite (NEGATIVE) Urine Bilirubin (NEGATIVE) Urine Urobilinogen (<2.0) EU/dL Ur Leukocyte Esterase (NEGATIVE) Urine RBC (0-2/HPF) Urine WBC (0-5/HPF) Ur Epithelial Cells (NONE-FEW) Urine Bacteria (NEGATIVE) Urine Mucus (NONE-MOD) Urine HCG, Qual (NEGATIVE) Salicylates (0-20) mg/dL Urine Opiates Screen (NEGATIVE) Ur Oxycodone Screen (NEGATIVE) Urine Methadone Screen (NEGATIVE) Acetaminophen <2.0 ug/mL Ur Barbiturates Screen (NEGATIVE) Ur Phencyclidine Scrn (NEGATIVE) Ur Amphetamine Screen (NEGATIVE) U Methamphetamines Scrn (NEGATIVE) U Benzodiazepines Scrn (NEGATIVE) U Cocaine Metab Screen (NEGATIVE) U Marijuana (THC) Screen (NEGATIVE) Ethyl Alcohol mg/dL Result Diagrams: 10/21/18 10:04 10/21/18 10:04 - Problem List (1) Altered mental status SNOMED Code(s): 435092832 ICD Code: R41.82 - ALTERED MENTAL STATUS, UNSPECIFIED Status: Acute Priority: High Current Visit: Yes Qualifiers: Altered mental status type: somnolence Qualified Code(s): R40.0 - Somnolence (2) Overdose SNOMED Code(s): 49885798 ICD Code: T50.901A - POISONING BY UNSP DRUG/MEDS/BIOL SUBST, ACCIDENTAL, INIT Status: Acute Priority: High Current Visit: Yes Qualifiers: Encounter type: initial encounter (3) Alcohol abuse SNOMED Code(s): 85667135 ICD Code: F10.10 - ALCOHOL ABUSE, UNCOMPLICATED Status: Chronic Priority : High Current Visit: Yes (4) Alcohol intoxication SNOMED Code(s): 56806415 ICD Code: F10.929 - ALCOHOL USE, UNSPECIFIED WITH INTOXICATION, UNSPECIFIED Status: Chronic Priority: High Current Visit: Yes Qualifiers: Complication of substance-induced condition: with unspecified complication Qualified Code(s): F10.929 - Alcohol use, unspecified with intoxication, unspecified (5) Seizure SNOMED Code(s): 28348872 ICD Code: R56.9 - UNSPECIFIED CONVULSIONS Status: Chronic Priority: High Current Visit: Yes Problem List Initiated/Reviewed/Updated: Yes Orders Last 24hrs: Active Orders 24 hr Category Date Time Status Patient Status [ADT] Stat ADT 10/21/18 11:32 Active CIWAA Assessment [RC] Q1H Care 10/21/18 11:44 Ordered Cardiac Monitoring [RC] CONTINUOUS Care 10/21/18 11:45 Ordered EKG 12 Lead [EKG Documentation Completion] [RC] STAT Care 10/21/18 09:44 Active Oxygen Therapy [RC] PRN Care 10/21/18 11:44 Ordered Up With Assistance [RC] ASDIRECTED Care 10/21/18 11:44 Ordered VTE/DVT Education [RC] PER UNIT ROUTINE Care 10/21/18 11:44 Ordered Vital Signs [RC] Q4H Care 10/21/18 11:44 Ordered Nothing per Oral Now Diet [DIET] Diet 10/21/18 Dinner Ordered CULTURE URINE [RM] Stat Lab 10/21/18 09:42 Received Enoxaparin [Lovenox] Med 10/21/18 11:45 Ordered 40 mg SUBCUT Q24H LORazepam [Ativan] Med 10/21/18 11:44 Ordered 1 mg IVPUSH Q4H PRN Ondansetron [Zofran] Med 10/21/18 11:44 Ordered 4 mg IVPUSH Q6H PRN Thiamine [Vitamin B-1] 100 mg Med 10/21/18 11:45 Ordered Folic Acid 1 mg Sodium Chloride 0.9% [Normal Saline] 1,000 ml IV ASDIRECTED Resuscitation Status Routine Resus Stat 10/21/18 11:44 Ordered Assessment/Plan Comment:: The patient is a 43-year-old lady who I decided to admitted to the intensive care unit as she is also possibly overdose with Unisom. The primary purpose for admitting to intensive care unit will be telemetry, frequent vital sign monitoring, CIWAA assessment with the use of Ativan every 4 hours as needed for agitation or seizures. Because of the patient's alteration in her mental status she'll be kept nothing by mouth for now. I've ordered IV of normal saline at 125 mL per hour along with thiamine 100 mg and folic acid 1 mg admitted to the fluid. I've ordered repeat laboratory studies. Once the patient has become more awake and alert we'll consider advancing diet. Based on review of the patient's previous issues and admissions for alcohol I have recommended that the patient receive intensive inpatient care as her current prospects for maintaining sobriety are poor.
[2018-10-21] MEDS ORDERED: Midazolam 1 MG/ML 2 ML SDV ONE (12:48)
[2018-10-21] MEDS ORDERED: fentaNYL 100 MCG/2 ML SDV ONE (12:48)
[2018-10-21] MEDS ORDERED: Pantoprazole 40 MG in Sodium Chloride 0.9% 100 ML IVPUSH SCH (13:00)
[2018-10-21] MEDS ORDERED: MVI, Adult with Vitamin K 10 ML SDV IV SCH (13:00)
[2018-10-21] MEDS ORDERED: fentaNYL 2,500 MCG in Sodium Chloride 0.9% 200 ML IV SCH (13:00)
[2018-10-21] MEDS ORDERED: FOLIC ACID IV SCH ×4 (13:15)
[2018-10-21] MEDS ORDERED: VITAMIN K IV SCH ×4 (13:15)
[2018-10-21] MEDS ORDERED: THIAMINE IV SCH ×4 (13:15)
[2018-10-21] MEDS ORDERED: [UNRECOGNIZED DRUG - OTHER] IV SCH ×4 (13:15)
[2018-10-21] MEDS ORDERED: Sodium Chloride 0.9% 1,000 ML IV SCH (13:15)
[2018-10-21] MEDS ORDERED: MVI IV SCH ×4 (13:15)
[2018-10-21] MEDS: fentaNYL 100 MCG/2 ML SDV IVPUSH PRN ×2 (13:35→14:01)
--- NOTE | 2018-10-21 13:48 | CR ---
Post intubation Portable chest Findings: Normal cardiac mediastinal silhouette. Endotracheal tube 2 cm above the kayode. Low lung volumes. Right basilar patchy opacities. No effusion or pneumothorax. Dictated by Raquel Brownlee MD @ Oct 21 2018 1:44PM Signed by Dr. Raquel Brownlee @ Oct 21 2018 1:46PM
--- NOTE | 2018-10-21 13:53 | PCM.SN ---
- Free Text/Narrative Note: Called for Rapid response - on arrival patient is postictal, with minimal response. ICE - Dr Torre requesting intubation. Mother and father at bedside denies any known personal or family problems with anesthesia medications. RSI performed with the following: Propofol 200mg IVP Rocuronium 30mg IVP Succinylcholine 120mg IVP DL with yip 2 yields grade I view, large food particulate noted at and below the level of the vocal cords. Suctioning was performed, 7.0 cuffed ETT placed without difficulty. +EtCO2 and +BBS noted. CXR ordered and pending at this time. VSS. Propofol infusion started at 25mcg/kg/min. Dr Galarza at the bedside evaluating the patient at this time. Anesthesia time - [id number]
--- NOTE | 2018-10-21 13:55 | PCM.DCSUM1 ---
Discharge Summary - Hospital Course Free Text/Narrative:: The patient was admitted secondary to possible overdose and alcohol abuse along with altered mental status. Diagnosis: Stroke: No - Discharge Data Discharge Date: 10/21/18 Discharge Disposition: DC/Tfer to Acute Hospital 02 Condition: Fair - Discharge Diagnosis/Problem(s) (1) Acute respiratory failure SNOMED Code(s): 58397081 ICD Code: J96.00 - ACUTE RESPIRATORY FAILURE, UNSP W HYPOXIA OR HYPERCAPNIA Status: Acute Priority: High Current Visit: Yes Problem Details: Patient intubated Qualifiers: Respiratory failure complication: hypoxia Qualified Code(s): J96.01 - Acute respiratory failure with hypoxia (2) Aspiration pneumonia SNOMED Code(s): 671600105 ICD Code: J69.0 - PNEUMONITIS DUE TO INHALATION OF FOOD AND VOMIT Status: Acute Priority: High Current Visit: Yes Qualifiers: Aspiration pneumonia type: due to regurgitated food Laterality: right Lung location: lower lobe of lung Qualified Code(s): J69.0 - Pneumonitis due to inhalation of food and vomit (3) Altered mental status SNOMED Code(s): 523607777 ICD Code: R41.82 - ALTERED MENTAL STATUS, UNSPECIFIED Status: Acute Priority: High Current Visit: Yes Qualifiers: Altered mental status type: somnolence Qualified Code(s): R40.0 - Somnolence (4) Overdose SNOMED Code(s): 16602843 ICD Code: T50.901A - POISONING BY UNSP DRUG/MEDS/BIOL SUBST, ACCIDENTAL, INIT Status: Acute Priority: High Current Visit: Yes Qualifiers: Encounter type: initial encounter (5) Alcohol abuse SNOMED Code(s): 05042761 ICD Code: F10.10 - ALCOHOL ABUSE, UNCOMPLICATED Status: Chronic Priority : High Current Visit: Yes (6) Alcohol intoxication SNOMED Code(s): 87985548 ICD Code: F10.929 - ALCOHOL USE, UNSPECIFIED WITH INTOXICATION, UNSPECIFIED Status: Chronic Priority: High Current Visit: Yes Qualifiers: Complication of substance-induced condition: with unspecified complication Qualified Code(s): F10.929 - Alcohol use, unspecified with intoxication, unspecified (7) Seizure SNOMED Code(s): 84679248 ICD Code: R56.9 - UNSPECIFIED CONVULSIONS Status: Chronic Priority: High Current Visit: Yes - Patient Instructions Diet: NPO - Discharge Plan *PRESCRIPTION DRUG MONITORING PROGRAM REVIEWED*: No *COPY OF PRESCRIPTION DRUG MONITORING REPORT IN PATIENT CRYSTAL: No Home Medications: Home Meds Levothyroxine [Synthroid] 100 mcg PO DAILY 12/07/14 [History] Oxygen Therapy Mode: Mechanical Ventilation Forms: ED Department Discharge Referrals: PCP,None [Primary Care Provider] - - Discharge Summary/Plan Comment DC Time >30 min.: Yes - General Info Date of Service: 10/21/18 Admission Dx/Problem (Free Text: Intubated, sedated Subjective Update: The patient is a 43-year-old lady who was admitted to the intensive care unit this morning surfer altered mental status as well as alcohol abuse and possible overdose of Unasyn. The patient was noted to have vomited and seizure activity. The patient had been given Ativan for seizure and was subsequently intubated. Further review of the patient's family has indicated that the patient may have had seizures before hospitalization and had resulted in some aspiration. The patient had chest x-ray taken postintubation which is also consistent with aspiration pneumonia. The patient will be maintained on propofol for sedation. I have spoke to the retail center receptionist, Dr. Christensen, in [place], [place] and he is accepting. The patient has been discharged pending flight and bed availability. She is on mechanical ventilation. - Patient Data Vitals - Most Recent: Last Vital Signs Temp 36.4 C 10/21/18 09:44 Pulse 95 10/21/18 11:44 Resp 26 H 10/21/18 11:44 BP 130/87 10/21/18 11:44 Pulse Ox 95 10/21/18 11:44 Weight - Most Recent: 54.431 kg Lab Results - Last 24 hrs: Laboratory Results - last 24 hr 10/21/18 10/21/18 10/21/18 Range/Units 09:40 09:42 09:42 WBC (4.0-11.0) K/uL RBC (4.30-5.90) M/uL Hgb (12.0-16.0) g/dL Hct (36.0-46.0) % MCV (80.0-98.0) fL MCH (27.0-32.0) pg MCHC (31.0-37.0) g/dL RDW Std Deviation (28.0-62.0) fl RDW Coeff of Desirae (11.0-15.0) % Plt Count (150-400) K/uL MPV (7.40-12.00) fL Neut % (Auto) (48.0-80.0) % Lymph % (Auto) (16.0-40.0) % [place] % (Auto) (0.0-15.0) % Eos % (Auto) (0.0-7.0) % Baso % (Auto) (0.0-1.5) % Neut # (Auto) (1.4-5.7) K/uL Lymph # (Auto) (0.6-2.4) K/uL [place] # (Auto) (0.0-0.8) K/uL Eos # (Auto) (0.0-0.7) K/uL Baso # (Auto) (0.0-0.1) K/uL Nucleated RBC % /100WBC Nucleated RBCs # K/uL ABG pH (7.35-7.45) ABG pCO2 (35-45) mmHG ABG pO2 (75-100) mmHG ABG HCO3 (22-26) mEq/L ABG Total CO2 ABG Base Excess (-2.0-2.0) Lactate (0.20-2.00) mmol/L Sodium (136-145) mmol/L Potassium (3.5-5.1) mmol/L Chloride (98-107) mmol/L Carbon Dioxide (21.0-32.0) mmol/L BUN (7.0-18.0) mg/dL Creatinine (0.6-1.0) mg/dL Est Cr Clr Drug Dosing Estimated GFR (MDRD) ml/min Glucose (74-106) mg/dL Calcium (8.5-10.1) mg/dL Total Bilirubin (0.2-1.0) mg/dL AST (15-37) IU/L ALT (14-63) IU/L Alkaline Phosphatase (46-116) U/L Troponin I (0.000-0.056) ng/mL Total Protein (6.4-8.2) g/dL Albumin (3.4-5.0) g/dL Globulin (2.6-4.0) g/dL Albumin/Globulin Ratio (0.9-1.6) Urine Color YELLOW Urine Appearance SLT CLOUDY Urine pH 6.0 (5.0-8.0) Ur Specific [place] 1.025 (1.001-1.035) Urine Protein TRACE H (NEGATIVE) mg/dL Urine Glucose (UA) NEGATIVE (NEGATIVE) mg/dL Urine Ketones 15 H (NEGATIVE) mg/dL Urine Occult Blood LARGE H (NEGATIVE) Urine Nitrite POSITIVE H (NEGATIVE) Urine Bilirubin NEGATIVE (NEGATIVE) Urine Urobilinogen 0.2 (<2.0) EU/dL Ur Leukocyte Esterase TRACE H (NEGATIVE) Urine RBC 10-20 (0-2/HPF) Urine WBC 0-2 (0-5/HPF) Ur Epithelial Cells RARE (NONE-FEW) Urine Bacteria 3+ H (NEGATIVE) Urine Mucus FEW (NONE-MOD) Urine HCG, Qual NEGATIVE (NEGATIVE) Salicylates (0-20) mg/dL Urine Opiates Screen NEGATIVE (NEGATIVE) Ur Oxycodone Screen NEGATIVE (NEGATIVE) Urine Methadone Screen NEGATIVE (NEGATIVE) Acetaminophen ug/mL Ur Barbiturates Screen NEGATIVE (NEGATIVE) Ur Phencyclidine Scrn NEGATIVE (NEGATIVE) Ur Amphetamine Screen NEGATIVE (NEGATIVE) U Methamphetamines Scrn NEGATIVE (NEGATIVE) U Benzodiazepines Scrn NEGATIVE (NEGATIVE) U Cocaine Metab Screen NEGATIVE (NEGATIVE) U Marijuana (THC) Screen NEGATIVE (NEGATIVE) Ethyl Alcohol mg/dL 10/21/18 10/21/18 10/21/18 Range/Units 10:04 10:04 10:04 WBC 8.30 (4.0-11.0) K/uL RBC 4.87 (4.30-5.90) M/uL Hgb 15.3 (12.0-16.0) g/dL Hct 45.1 (36.0-46.0) % MCV 92.6 (80.0-98.0) fL MCH 31.4 (27.0-32.0) pg MCHC 33.9 (31.0-37.0) g/dL RDW Std Deviation 44.4 (28.0-62.0) fl RDW Coeff of Desirae 13 (11.0-15.0) % Plt Count 441 H (150-400) K/uL MPV 9.50 (7.40-12.00) fL Neut % (Auto) 84.7 H (48.0-80.0) % Lymph % (Auto) 13.4 L (16.0-40.0) % [place] % (Auto) 1.6 (0.0-15.0) % Eos % (Auto) 0.1 (0.0-7.0) % Baso % (Auto) 0.2 (0.0-1.5) % Neut # (Auto) 7.0 H (1.4-5.7) K/uL Lymph # (Auto) 1.1 (0.6-2.4) K/uL [place] # (Auto) 0.1 (0.0-0.8) K/uL Eos # (Auto) 0.0 (0.0-0.7) K/uL Baso # (Auto) 0.0 (0.0-0.1) K/uL Nucleated RBC % 0.0 /100WBC Nucleated RBCs # 0 K/uL ABG pH (7.35-7.45) ABG pCO2 (35-45) mmHG ABG pO2 (75-100) mmHG ABG HCO3 (22-26) mEq/L ABG Total CO2 ABG Base Excess (-2.0-2.0) Lactate (0.20-2.00) mmol/L Sodium 143 (136-145) mmol/L Potassium 3.6 (3.5-5.1) mmol/L Chloride 104 (98-107) mmol/L Carbon Dioxide 21.4 (21.0-32.0) mmol/L BUN 7 (7.0-18.0) mg/dL Creatinine 0.5 L (0.6-1.0) mg/dL Est Cr Clr Drug Dosing TNP Estimated GFR (MDRD) > 60.0 ml/min Glucose 131 H (74-106) mg/dL Calcium 8.2 L (8.5-10.1) mg/dL Total Bilirubin 0.2 (0.2-1.0) mg/dL AST 10 L (15-37) IU/L ALT 16 (14-63) IU/L Alkaline Phosphatase 47 (46-116) U/L Troponin I < 0.050 (0.000-0.056) ng/mL Total Protein 7.9 (6.4-8.2) g/dL Albumin 4.3 (3.4-5.0) g/dL Globulin 3.6 (2.6-4.0) g/dL Albumin/Globulin Ratio 1.2 (0.9-1.6) Urine Color Urine Appearance Urine pH (5.0-8.0) Ur Specific [place] (1.001-1.035) Urine Protein (NEGATIVE) mg/dL Urine Glucose (UA) (NEGATIVE) mg/dL Urine Ketones (NEGATIVE) mg/dL Urine Occult Blood (NEGATIVE) Urine Nitrite (NEGATIVE) Urine Bilirubin (NEGATIVE) Urine Urobilinogen (<2.0) EU/dL Ur Leukocyte Esterase (NEGATIVE) Urine RBC (0-2/HPF) Urine WBC (0-5/HPF) Ur Epithelial Cells (NONE-FEW) Urine Bacteria (NEGATIVE) Urine Mucus (NONE-MOD) Urine HCG, Qual (NEGATIVE) Salicylates 1.5 (0-20) mg/dL Urine Opiates Screen (NEGATIVE) Ur Oxycodone Screen (NEGATIVE) Urine Methadone Screen (NEGATIVE) Acetaminophen ug/mL Ur Barbiturates Screen (NEGATIVE) Ur Phencyclidine Scrn (NEGATIVE) Ur Amphetamine Screen (NEGATIVE) U Methamphetamines Scrn (NEGATIVE) U Benzodiazepines Scrn (NEGATIVE) U Cocaine Metab Screen (NEGATIVE) U Marijuana (THC) Screen (NEGATIVE) Ethyl Alcohol 133 mg/dL 10/21/18 10/21/18 10/21/18 Range/Units 10:04 11:10 13:28 WBC (4.0-11.0) K/uL RBC (4.30-5.90) M/uL Hgb (12.0-16.0) g/dL Hct (36.0-46.0) % MCV (80.0-98.0) fL MCH (27.0-32.0) pg MCHC (31.0-37.0) g/dL RDW Std Deviation (28.0-62.0) fl RDW Coeff of Desirae (11.0-15.0) % Plt Count (150-400) K/uL MPV (7.40-12.00) fL Neut % (Auto) (48.0-80.0) % Lymph % (Auto) (16.0-40.0) % [place] % (Auto) (0.0-15.0) % Eos % (Auto) (0.0-7.0) % Baso % (Auto) (0.0-1.5) % Neut # (Auto) (1.4-5.7) K/uL Lymph # (Auto) (0.6-2.4) K/uL [place] # (Auto) (0.0-0.8) K/uL Eos # (Auto) (0.0-0.7) K/uL Baso # (Auto) (0.0-0.1) K/uL Nucleated RBC % /100WBC Nucleated RBCs # K/uL ABG pH 7.407 (7.35-7.45) ABG pCO2 35 (35-45) mmHG ABG pO2 81 (75-100) mmHG ABG HCO3 22 (22-26) mEq/L ABG Total CO2 19.0 ABG Base Excess -2.3 L (-2.0-2.0) Lactate 6.5 H (0.20-2.00) mmol/L Sodium (136-145) mmol/L Potassium (3.5-5.1) mmol/L Chloride (98-107) mmol/L Carbon Dioxide (21.0-32.0) mmol/L BUN (7.0-18.0) mg/dL Creatinine (0.6-1.0) mg/dL Est Cr Clr Drug Dosing Estimated GFR (MDRD) ml/min Glucose (74-106) mg/dL Calcium (8.5-10.1) mg/dL Total Bilirubin (0.2-1.0) mg/dL AST (15-37) IU/L ALT (14-63) IU/L Alkaline Phosphatase (46-116) U/L Troponin I (0.000-0.056) ng/mL Total Protein (6.4-8.2) g/dL Albumin (3.4-5.0) g/dL Globulin (2.6-4.0) g/dL Albumin/Globulin Ratio (0.9-1.6) Urine Color Urine Appearance Urine pH (5.0-8.0) Ur Specific [place] (1.001-1.035) Urine Protein (NEGATIVE) mg/dL Urine Glucose (UA) (NEGATIVE) mg/dL Urine Ketones (NEGATIVE) mg/dL Urine Occult Blood (NEGATIVE) Urine Nitrite (NEGATIVE) Urine Bilirubin (NEGATIVE) Urine Urobilinogen (<2.0) EU/dL Ur Leukocyte Esterase (NEGATIVE) Urine RBC (0-2/HPF) Urine WBC (0-5/HPF) Ur Epithelial Cells (NONE-FEW) Urine Bacteria (NEGATIVE) Urine Mucus (NONE-MOD) Urine HCG, Qual (NEGATIVE) Salicylates (0-20) mg/dL Urine Opiates Screen (NEGATIVE) Ur Oxycodone Screen (NEGATIVE) Urine Methadone Screen (NEGATIVE) Acetaminophen <2.0 ug/mL Ur Barbiturates Screen (NEGATIVE) Ur Phencyclidine Scrn (NEGATIVE) Ur Amphetamine Screen (NEGATIVE) U Methamphetamines Scrn (NEGATIVE) U Benzodiazepines Scrn (NEGATIVE) U Cocaine Metab Screen (NEGATIVE) U Marijuana (THC) Screen (NEGATIVE) Ethyl Alcohol mg/dL SAVANNAH Results - Last 24 hrs: Microbiology 10/21/18 13:43 Anaerobic Blood Culture - Final Blood - Venous - Lab Draw 10/21/18 13:28 Anaerobic Blood Culture - Final Blood - Venous Med Orders - Current: Current Medications Enoxaparin Sodium (Lovenox) 40 mg SUBCUT Q24H SLADE Fentanyl (Sublimaze) 50 mcg IVPUSH Q30M PRN PRN Reason: Pain Last Admin: 10/21/18 13:35 Dose: 50 mcg Propofol (Diprivan 100 Ml) 100 mls @ 1.633 mls/hr IV TITRATE SLADE; Protocol Last Titration: 10/21/18 13:25 Dose: 15.3 mcg/kg/min, 4.997 mls/hr Pantoprazole Sodium 40 mg/ (Sodium Chloride) 100 mls @ 10 mls/hr IVPUSH DAILY SLADE Sodium Chloride (Normal Saline) 1,000 mls @ 125 mls/hr IV ASDIRECTED SLADE Phenytoin Sodium 1,000 mg/ (Sodium Chloride) 270 mls @ 250 mls/hr IV ONETIME ONE Stop: 10/21/18 14:34 Last Admin: 10/21/18 13:32 Dose: 250 mls/hr Thiamine HCl 100 mg/ Folic Acid 1 mg/ Multivitamins/Minerals 10 ml/ Sodium Chloride 1,011.2 mls @ 126.247 mls/hr IV ASDIRECTED SLADE Last Admin: 10/21/18 13:16 Dose: 126.247 mls/hr Lorazepam (Ativan) 1 mg IVPUSH Q4H PRN PRN Reason: Agitation Last Admin: 10/21/18 12:41 Dose: 1 mg Ondansetron HCl (Zofran) 4 mg IVPUSH Q6H PRN PRN Reason: Nausea/Vomiting Discontinued Medications Fentanyl (Sublimaze) Confirm Administered Dose 100 mcg .ROUTE .STK-MED ONE Stop: 10/21/18 12:49 Ceftriaxone Sodium/Dextrose 1 (gm/ Premix) 50 mls @ 100 mls/hr IV ONETIME ONE Stop: 10/21/18 11:44 Last Admin: 10/21/18 11:19 Dose: 100 mls/hr Thiamine HCl 100 mg/ Folic (Acid 1 mg/ Sodium Chloride) 1,001.2 mls @ 125 mls/ hr IV ASDIRECTED SLADE Midazolam HCl (Versed 1 Mg/Ml) Confirm Administered Dose 2 mg .ROUTE .STK-MED ONE Stop: 10/21/18 12:49 - Exam Quality Assessment: Reports: Supplemental Oxygen, Urine Catheter General: Denies: Alert, Oriented Lungs: Reports: Normal Respiratory Effort, Crackles, Rales Cardiovascular: Reports: Regular Rate, Regular Rhythm Psy/Mental Status: Denies: Alert (Intubated and sedated)
[2018-10-21] MEDS ORDERED: Pantoprazole 40 MG in Sodium Chloride 0.9% 100 ML IV SCH (14:09)
[2018-10-21] MEDS ORDERED: Succinylcholine 200 MG/10 ML MDV IV ONE (14:29)
[2018-10-21] MEDS ORDERED: Rocuronium 100 MG/10 ML MDV IV ONE (14:29)
[2018-10-21 15:38] VITALS: BP 86/48
== END 2018-10-21 14:30 ==
LOC: MW.ED 09:29 → MW.ICU 11:54
PROVIDERS: ADMIT Internal Medicine; ATTEND Internal Medicine
DX: T50.901A Poisoning by unspecified drugs, medicaments and biological substances, accidental (unintentional), initial encounter (principal); F10.129 Alcohol abuse with intoxication, unspecified; R40.0 Somnolence; J96.01 Acute respiratory failure with hypoxia; J69.0 Pneumonitis due to inhalation of food and vomit; R56.9 Unspecified convulsions; E05.90 Thyrotoxicosis, unspecified without thyrotoxic crisis or storm; Z88.0 Allergy status to penicillin; Z98.890 Other specified postprocedural states
CPT/HCPCS: 36415; 36600; 70450; 71045; 80053; 80164; 80305; 81001; 81025; 82550; 82803; 83605; 83735; 84100; 84439; 84443; 84484; 85025; 87040; 87086; 93005; 96365; 99285; A4217; G0480; J0330; J0696; J1165; J2060; J2704; J3010; J3411; J7040; J7050; 31500; 87088; 87186; 94002; 96375; 96376; 99284; G0378

== ENCOUNTER 2019-09-30 22:30 | Emergency (ER) | payer SELFPAY ==
[2019-09-30] MEDS ORDERED: Acetaminophen 500 MG Tab PO ONE (23:02)
[2019-09-30] MEDS ORDERED: Ibuprofen 400 MG Tab PO ONE (23:02)
--- NOTE | 2019-09-30 23:50 | CR ---
INDICATION: Injury to distal humerus/prox forearm. RIGHT HUMERUS AND RIGHT ELBOW No fracture, dislocation, or destructive lesion of bone is seen. No arthritic changes or soft tissue abnormalities are identified. IMPRESSION: Negative right humerus and elbow radiographs. SHARAD GARCIA MD [employer] [facility] Dictated by: Jose Garcia MD @ 09/30/2019 23:49:26 (Electronically Signed)
--- NOTE | 2019-09-30 23:50 | CR ---
INDICATION: Injury to distal humerus/prox forearm. RIGHT HUMERUS AND RIGHT ELBOW No fracture, dislocation, or destructive lesion of bone is seen. No arthritic changes or soft tissue abnormalities are identified. IMPRESSION: Negative right humerus and elbow radiographs. SHARAD GARCIA MD [facility] Dictated by: Jose Garcia MD @ 09/30/2019 23:49:41 (Electronically Signed)
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
[2019-10-01 00:12] VITALS: BP 116/80; PULSE 84
== END 2019-10-01 00:13 | disposition home or self-care (01) ==
LOC: MW.ED 22:30
DX: S40.021A Contusion of right upper arm, initial encounter (principal); M06.9 Rheumatoid arthritis, unspecified; E05.90 Thyrotoxicosis, unspecified without thyrotoxic crisis or storm; Z87.891 Personal history of nicotine dependence; Z88.1 Allergy status to other antibiotic agents; Z79.899 Other long term (current) drug therapy; W18.00XA Striking against unspecified object with subsequent fall, initial encounter
CPT/HCPCS: 73060; 73070; 99283; A9270